=== PATIENT | female | born 1940 | race Two or more races ===

== ENCOUNTER 2016-06-17 08:54 | Emergency (ER) | payer MEDICARE, OTHER ==
[~2016-06-17] VITALS: Ht 152.4 cm; Wt 71.2 kg
[~2016-06-17 08:54] MED LIST: ALPR0.5T PO; ENAL2.5T PO; FURO20TA3 PO; HYDR200T36 PO; NOR5T PO; SULF-35 PO
[2016-06-17 09:05] VITALS: BP 144/65
[2016-06-17] MEDS ORDERED: HYDROcodone-ACET 5/325MG TAB PO ONE (11:30)
[2016-06-17] MEDS ORDERED: KETOROLAC TROMETH 30 MG/ML 1ML VIAL IM ONE (11:30)
== END 2016-06-17 12:12 | disposition home or self-care (01) ==
LOC: EDBD 08:54 → ER 09:00
DX: G89.29 Other chronic pain (principal); M25.511 Pain in right shoulder; M19.011 Primary osteoarthritis, right shoulder; M16.11 Unilateral primary osteoarthritis, right hip; M19.90 Unspecified osteoarthritis, unspecified site; I10 Essential (primary) hypertension; Z87.440 Personal history of urinary (tract) infections; Z90.710 Acquired absence of both cervix and uterus; Z90.89 Acquired absence of other organs; Z88.8 Allergy status to other drugs, medicaments and biological substances
CPT/HCPCS: 73030; 73502; 96372; 99284; J1885

== ENCOUNTER 2016-09-08 10:15 | Emergency (ER) | payer MEDICARE, OTHER ==
[~2016-09-08] VITALS: Ht 154.9 cm; Wt 68.0 kg
[2016-09-08 10:59] LABS: Urine Bilirubin Negative (Negative); Urine Blood TRACE /uL (Negative); Urine Color Yellow (Yellow); Urine Glucose Normal (Normal); Urine Ketone Negative (Negative); Urine Nitrite Negative (Negative); Urine RBC 1 /hpf (0 - 4); Urine Squamous Epithelial Cell FEW /hpf (<5); Urine Urobilinogen Normal (Negative)
[2016-09-08 11:23] LABS: Basophils # (auto) 0 uL; Basophils % (auto) 0.7 % (0.0-2.0); Eosinophils # (auto) 0.1 uL; Eosinophils % (auto) 1.6 % (0.0-7.0); Hemoglobin 14.2 g/dL (12.2-16.2); Lymphocytes # (auto) 1.8 uL; Lymphocytes % (auto) 24.3 % (10.0-50.0); Mean Corpuscular Hemoglobin 28.8 pg (28.0-32.0); Mean Corpuscular Volume 87.3 fL (80.0-100.0); Mean Platelet Volume 8.9 fL (7.4-10.4); Monocytes # (auto) 0.5 uL; Monocytes % (auto) 6.6 % (0.0-12.0); Neutrophils # (auto) 4.8 uL; Neutrophils % (auto) 66.8 % (37.0-80.0); Platelet Count (auto) 241 10^3/uL (140-450); Red Cell Distribution Width 15.1 % (11.6-16.0); White Blood Cell 7.2 10^3/uL (4.4-10.8)
[2016-09-08 11:27] LABS: Albumin 3.7 g/dL (3.4-5.0); BUN/Creatinine Ratio 14.7; Bilirubin, Total 0.3 mg/dL (0.2-1.0); Calcium 9.5 mg/dL (8.5-10.1); Potassium 3.8 mmol/L (3.5-5.1); Total Protein 8.4 g/dL (6.4-8.2)
[2016-09-08] MEDS ORDERED: METOCLOPRAMIDE HCL 5MG/ml INJ 2ml VIAL IV ONE (13:30)
[2016-09-08] MEDS ORDERED: KETOROLAC TROMETH 30 MG/ML 1ML VIAL IV ONE (13:30)
[2016-09-08 16:00] VITALS: BP 137/62
== END 2016-09-08 18:41 | disposition home or self-care (01) ==
LOC: EDBD 10:15 → ER 10:18
DX: G43.819 Other migraine, intractable, without status migrainosus (principal); B89 Unspecified parasitic disease; H75.01 Mastoiditis in infectious and parasitic diseases classified elsewhere, right ear; M06.9 Rheumatoid arthritis, unspecified; F41.1 Generalized anxiety disorder; R42 Dizziness and giddiness; I10 Essential (primary) hypertension; Z90.710 Acquired absence of both cervix and uterus; Z90.49 Acquired absence of other specified parts of digestive tract
CPT/HCPCS: 36415; 70450; 71020; 80053; 81001; 84484; 85025; 93005; 96374; 96375; 99285; J1885; J2765

== ENCOUNTER 2016-10-05 09:00 | Inpatient (IN) | payer MEDICARE, OTHER ==
[~2016-10-05] VITALS: Ht 152.4 cm; Wt 74.4 kg
[2016-10-05] MEDS ORDERED: FUROSEMIDE 40 MG/4 ML VIAL IV ONE (10:00)
[2016-10-05 10:25] LABS: Basophils # (auto) 0 uL; Basophils % (auto) 0.6 % (0.0-2.0); Eosinophils # (auto) 0.2 uL; Eosinophils % (auto) 3.6 % (0.0-7.0); Hematocrit 34.4 % (36.0-46.0); Hemoglobin 11.4 g/dL (12.2-16.2); Lymphocytes % (auto) 32.7 % (10.0-50.0); Mean Corpuscular Hemoglobin 29.1 pg (28.0-32.0); Mean Corpuscular Hgb Conc. 33.2 g/dL (32.0-36.0); Mean Corpuscular Volume 87.7 fL (80.0-100.0); Mean Platelet Volume 8.6 fL (7.4-10.4); Monocytes # (auto) 0.7 uL; Monocytes % (auto) 10.9 % (0.0-12.0); Neutrophils # (auto) 3.1 uL; Neutrophils % (auto) 52.2 % (37.0-80.0); Platelet Count (auto) 183 10^3/uL (140-450); Red Cell Distribution Width 14.2 % (11.6-16.0)
[2016-10-05 10:35] LABS: Albumin 3.2 g/dL (3.4-5.0); Anion Gap 7 (5-15); Aspartate Aminotransferase 11 U/L (15-37); BUN/Creatinine Ratio 13.1; Blood Urea Nitrogen 11 mg/dL (7-18); Calcium 8.7 mg/dL (8.5-10.1); Carbon Dioxide 29 mmol/L (21-32); Chloride 107 mmol/L (98-107); GFR African American 85 mL/min; GFR Non-African American 70 mL/min; Glucose 105 mg/dL (74-106); Magnesium 2.2 mg/dL (1.6-2.6); Potassium 3.5 mmol/L (3.5-5.1); Sodium 143 mmol/L (136-145); Total Protein 7.2 g/dL (6.4-8.2)
[2016-10-05 10:39] LABS: Alkaline Phosphatase 85 U/L (45-117); B-Type Natriuretic Peptide 27.7 pg/mL (0-100); Bilirubin, Total 0.5 mg/dL (0.2-1.0); Temperature: 24.8 C (20.0-25.0)
[2016-10-05 11:51] LABS: Urine Bilirubin Negative (Negative); Urine Blood Negative /uL (Negative); Urine Color Yellow (Yellow); Urine Glucose Normal (Normal); Urine Ketone Negative (Negative); Urine Mucus FEW (None Seen); Urine Nitrite Negative (Negative); Urine RBC 1 /hpf (0 - 4); Urine Urobilinogen Normal (Negative); Urine pH 6.5 (5.0-8.0)
[2016-10-05] MEDS ORDERED: cefTRIAXone 1GM/50ML D5W 50 ML IV ONE (13:15)
[2016-10-05] MEDS ORDERED: PROCHLORPERAZINE EDISYLATE 5 MG/ML 2ML VIAL IV PRN (13:15)
[2016-10-05] MEDS ORDERED: ACETAMINOPHEN 500 MG TAB PO PRN (13:15)
[2016-10-05] MEDS ORDERED: MORPHINE SULF INJ 2 MG/ML SYRINGE 1ML IV PRN (13:15)
[2016-10-05] MEDS ORDERED: NITROGLYCERIN 0.4 MG SL TAB SL PRN (13:15)
[2016-10-05] MEDS ORDERED: TEMAZEPAM 15 MG CAP PO PRN (13:15)
[2016-10-05] MEDS ORDERED: LACTULOSE 20Gm/30ML SOLN PO PRN (13:15)
[2016-10-05] MEDS: ENALAPRIL MALEATE 2.5 MG TAB PO ONE ×2 (13:45→14:30)
[2016-10-05] MEDS ORDERED: PANTOPRAZOLE 40 MG TAB PO ONE (13:45)
[2016-10-05] MEDS ORDERED: NITROGLYCERIN 0.2MG/HR TOPICAL PATCH TD ONE (13:45)
[2016-10-05] MEDS ORDERED: CARVEDILOL 3.125 MG TAB PO ONE (13:45)
[2016-10-05] MEDS ORDERED: ASPirin 81 mg TAB PO ONE (13:45)
[2016-10-05] MEDS: SODIUM CHLOR 0.9% PF (SALINE LOCK) 10ML VIAL IV SCH ×2 (14:24→22:04)
[2016-10-05] MEDS: ALPRAZolam 0.5 MG TAB PO PRN (15:13)
[2016-10-05 17:45] VITALS: BP 102/52
[2016-10-05 20:00] VITALS: BP 99/51
[2016-10-05] MEDS: CARVEDILOL 3.125 MG TAB PO SCH (22:00)
[2016-10-05 22:14] VITALS: BP 99/51
[2016-10-06] VITALS (7 sets, daily range): BP systolic 104–153; BP diastolic 47–76
[2016-10-06] MEDS: SODIUM CHLOR 0.9% PF (SALINE LOCK) 10ML VIAL IV SCH ×3 (05:05→21:37)
[2016-10-06] MEDS: HYDROcodone-ACET 5/325MG TAB PO PRN ×2 (05:05→20:44)
[2016-10-06 06:35] LABS: Basophils # (auto) 0 uL; Basophils % (auto) 0.5 % (0.0-2.0); Eosinophils # (auto) 0.2 uL; Eosinophils % (auto) 4.5 % (0.0-7.0); Hematocrit 35.4 % (36.0-46.0); Hemoglobin 11.6 g/dL (12.2-16.2); Lymphocytes # (auto) 1.4 uL; Lymphocytes % (auto) 25.2 % (10.0-50.0); Mean Corpuscular Hgb Conc. 32.7 g/dL (32.0-36.0); Mean Corpuscular Volume 88.6 fL (80.0-100.0); Mean Platelet Volume 8.8 fL (7.4-10.4); Monocytes # (auto) 0.5 uL; Monocytes % (auto) 10.1 % (0.0-12.0); Neutrophils # (auto) 3.2 uL; Neutrophils % (auto) 59.7 % (37.0-80.0); Platelet Count (auto) 177 10^3/uL (140-450); Red Cell Distribution Width 14.8 % (11.6-16.0); White Blood Cell 5.4 10^3/uL (4.4-10.8)
[2016-10-06 06:43] LABS: Albumin 2.8 g/dL (3.4-5.0); Alkaline Phosphatase 81 U/L (45-117); Anion Gap 8 (5-15); Aspartate Aminotransferase 13 U/L (15-37); BUN/Creatinine Ratio 17.9; Bilirubin, Total 0.4 mg/dL (0.2-1.0); Blood Urea Nitrogen 14 mg/dL (7-18); Calcium 8.6 mg/dL (8.5-10.1); Carbon Dioxide 28 mmol/L (21-32); Chloride 110 mmol/L (98-107); Cholesterol 134 mg/dL (< 200); GFR African American 92 mL/min; GFR Non-African American 76 mL/min; Glucose 127 mg/dL (74-106); HDL Cholesterol 43 mg/dL (40-59); LDL Cholesterol 79 mg/dL (< 100); Potassium 3.5 mmol/L (3.5-5.1); Sodium 146 mmol/L (136-145); Total Protein 6.5 g/dL (6.4-8.2); Triglycerides 115 mg/dL (< 150)
[2016-10-06 07:13] LABS: B-Type Natriuretic Peptide 71.85 pg/mL (0-100)
[2016-10-06 07:19] LABS: Temperature: 22.5 C (20.0-25.0)
[2016-10-06] MEDS: ALPRAZolam 0.5 MG TAB PO PRN ×2 (08:28→20:44)
[2016-10-06] MEDS: FUROSEMIDE 40 MG/4 ML VIAL IV SCH (09:07)
[2016-10-06] MEDS: ASPirin 81 mg TAB PO SCH (09:08)
[2016-10-06] MEDS: cefTRIAXone 1GM/50ML D5W 50 ML IV SCH (09:08)
[2016-10-06] MEDS: PANTOPRAZOLE 40 MG TAB PO SCH (09:08)
[2016-10-06] MEDS: ENOXAPARIN SOD 40 MG/0.4 ML SYRINGE SC SCH (09:08)
[2016-10-06] MEDS: NITROGLYCERIN 0.2MG/HR TOPICAL PATCH TD SCH (09:11)
[2016-10-06] MEDS: ENALAPRIL MALEATE 2.5 MG TAB PO SCH (10:00)
[2016-10-06] MEDS ORDERED: ENOXAPARIN SOD 40 MG/0.4 ML SYRINGE SC ONE (10:00)
[2016-10-06] MEDS: MORPHINE SULF INJ 2 MG/ML SYRINGE 1ML IV PRN ×2 (11:25→15:30)
[2016-10-06] MEDS: CARVEDILOL 3.125 MG TAB PO SCH ×2 (11:26→21:39)
[2016-10-07] MEDS: HYDROcodone-ACET 5/325MG TAB PO PRN ×3 (03:57→12:52)
[2016-10-07] MEDS: ALPRAZolam 0.5 MG TAB PO PRN ×2 (04:16→09:16)
[2016-10-07 05:00] VITALS: BP 145/78
[2016-10-07] MEDS: SODIUM CHLOR 0.9% PF (SALINE LOCK) 10ML VIAL IV SCH ×2 (05:15→14:00)
[2016-10-07 05:47] LABS: Basophils # (auto) 0 uL; Basophils % (auto) 0.4 % (0.0-2.0); Eosinophils # (auto) 0.2 uL; Eosinophils % (auto) 4.3 % (0.0-7.0); Hematocrit 36.2 % (36.0-46.0); Hemoglobin 11.8 g/dL (12.2-16.2); Lymphocytes # (auto) 1.1 uL; Lymphocytes % (auto) 22.2 % (10.0-50.0); Mean Corpuscular Hemoglobin 28.9 pg (28.0-32.0); Mean Corpuscular Hgb Conc. 32.6 g/dL (32.0-36.0); Mean Corpuscular Volume 88.5 fL (80.0-100.0); Mean Platelet Volume 8.5 fL (7.4-10.4); Monocytes # (auto) 0.5 uL; Monocytes % (auto) 10.3 % (0.0-12.0); Neutrophils # (auto) 3.1 uL; Neutrophils % (auto) 62.8 % (37.0-80.0); Platelet Count (auto) 184 10^3/uL (140-450); Red Cell Distribution Width 14.1 % (11.6-16.0)
[2016-10-07 06:06] LABS: Calcium 8.9 mg/dL (8.5-10.1); Potassium 3.5 mmol/L (3.5-5.1)
[2016-10-07 06:08] LABS: BUN/Creatinine Ratio 21.6
[2016-10-07] MEDS: cefTRIAXone 1GM/50ML D5W 50 ML IV SCH (08:36)
[2016-10-07] MEDS: FUROSEMIDE 40 MG/4 ML VIAL IV SCH (08:37)
[2016-10-07] MEDS: ASPirin 81 mg TAB PO SCH (08:37)
[2016-10-07] MEDS: ENALAPRIL MALEATE 2.5 MG TAB PO SCH (08:39)
[2016-10-07] MEDS: PANTOPRAZOLE 40 MG TAB PO SCH (08:39)
[2016-10-07] MEDS: MORPHINE SULF INJ 2 MG/ML SYRINGE 1ML IV PRN (08:40)
[2016-10-07] MEDS: CARVEDILOL 3.125 MG TAB PO SCH (08:40)
[2016-10-07] MEDS: ENOXAPARIN SOD 40 MG/0.4 ML SYRINGE SC SCH (08:40)
[2016-10-07] MEDS: NITROGLYCERIN 0.2MG/HR TOPICAL PATCH TD SCH (08:41)
[2016-10-07 09:11] VITALS: BP 126/67
[2016-10-07 12:03] VITALS: BP 111/45
[2016-10-07 13:09] VITALS: BP 111/45
== END 2016-10-07 14:50 | disposition home or self-care (01) | DRG 292 ==
LOC: ER 09:00 → TELE 09:01 → TELE-E-ADS 17:27 → TELE-WESTW 17:51
PROVIDERS: ADMIT Internal Medicine; ATTEND Family Medicine
DX: I50.43 Acute on chronic combined systolic (congestive) and diastolic (congestive) heart failure (principal); N39.0 Urinary tract infection, site not specified; I11.0 Hypertensive heart disease with heart failure; F41.9 Anxiety disorder, unspecified; F32.9 Major depressive disorder, single episode, unspecified; M79.7 Fibromyalgia; M19.90 Unspecified osteoarthritis, unspecified site; D64.9 Anemia, unspecified; N20.0 Calculus of kidney; Z80.0 Family history of malignant neoplasm of digestive organs; Z80.1 Family history of malignant neoplasm of trachea, bronchus and lung; Z80.3 Family history of malignant neoplasm of breast; Z80.41 Family history of malignant neoplasm of ovary; Z80.8 Family history of malignant neoplasm of other organs or systems; Z81.8 Family history of other mental and behavioral disorders; Z82.0 Family history of epilepsy and other diseases of the nervous system; Z82.3 Family history of stroke; Z82.49 Family history of ischemic heart disease and other diseases of the circulatory system; Z82.5 Family history of asthma and other chronic lower respiratory diseases; Z82.62 Family history of osteoporosis; Z83.3 Family history of diabetes mellitus; Z87.442 Personal history of urinary calculi; Z90.710 Acquired absence of both cervix and uterus; Z90.89 Acquired absence of other organs; Z88.8 Allergy status to other drugs, medicaments and biological substances
CPT/HCPCS: 36415; 71010; 76775; 80048; 80053; 80061; 81001; 82550; 83735; 83880; 84443; 84484; 85025; 87081; 87086; 93005; 93306; 93970; 94761; 96374; 96375; J0696

== ENCOUNTER → 2016-10-31 | Outpatient (CLI) | payer MEDICARE, OTHER ==
[~2016-10-31] MED LIST changes: -HYDR200T36 PO
[2016-10-31 09:08] LABS: Urine Bilirubin Negative (Negative); Urine Color Yellow (Yellow); Urine Glucose Normal (Normal); Urine Ketone Negative (Negative); Urine Mucus FEW (None Seen); Urine Nitrite Negative (Negative); Urine RBC 14 /hpf (0 - 4); Urine Squamous Epithelial Cell FEW /hpf (<5); Urine Urobilinogen Normal (Negative); Urine pH 6.5 (5.0-8.0)
[2016-10-31 09:09] LABS: Urine Blood 1+ /uL (Negative)
== END | disposition home or self-care (01) ==
LOC: LAB 06:34
PROVIDERS: ATTEND Internal Medicine
DX: I10 Essential (primary) hypertension (principal); S46.119D Strain of muscle, fascia and tendon of long head of biceps, unspecified arm, subsequent encounter; H70.11 Chronic mastoiditis, right ear
CPT/HCPCS: 80307; 81001; 82607; 82728; 83540; 83550

== ENCOUNTER → 2016-11-07 | Outpatient (CLI) | payer MEDICARE, OTHER ==
[~2016-11-07] MED LIST changes: +HYDR-4663 PO; -NOR5T PO
== END | disposition home or self-care (01) ==
LOC: XY 10:08
PROVIDERS: ATTEND Internal Medicine
DX: R93.0 Abnormal findings on diagnostic imaging of skull and head, not elsewhere classified (principal)
CPT/HCPCS: 78306; A9503

== ENCOUNTER 2016-11-21 13:19 | Emergency (ER) | payer MEDICARE, OTHER ==
[~2016-11-21] VITALS: Ht 152.4 cm; Wt 67.6 kg
[2016-11-21 14:49] LABS: Basophils # (auto) 0 uL; Basophils % (auto) 0.7 % (0.0-2.0); CONDITION Y; Eosinophils # (auto) 0.2 uL; Eosinophils % (auto) 3.4 % (0.0-7.0); Hematocrit 38.8 % (36.0-46.0); Lymphocytes # (auto) 1.8 uL; Mean Corpuscular Hemoglobin 29.5 pg (28.0-32.0); Mean Corpuscular Hgb Conc. 33.5 g/dL (32.0-36.0); Mean Corpuscular Volume 88.2 fL (80.0-100.0); Mean Platelet Volume 8.8 fL (7.4-10.4); Monocytes # (auto) 0.6 uL; Monocytes % (auto) 9.4 % (0.0-12.0); Neutrophils # (auto) 3.4 uL; Neutrophils % (auto) 56.5 % (37.0-80.0); Platelet Count (auto) 207 10^3/uL (140-450); Red Cell Distribution Width 13.4 % (11.6-16.0)
[2016-11-21 15:14] LABS: Albumin 3.4 g/dL (3.4-5.0); BUN/Creatinine Ratio 21.7; Bilirubin, Total 0.4 mg/dL (0.2-1.0); Calcium 9.1 mg/dL (8.5-10.1); Potassium 3.8 mmol/L (3.5-5.1); Total Protein 7.6 g/dL (6.4-8.2)
[2016-11-21 15:18] LABS: B-Type Natriuretic Peptide 49.1 pg/mL (0-100)
[2016-11-21 15:25] LABS: Temperature: 22.7 C (20.0-25.0)
[2016-11-21] MEDS ORDERED: FUROSEMIDE 20 MG/2 ML VIAL IV ONE (21:45)
[2016-11-21 22:36] VITALS: BP 113/64
== END 2016-11-21 22:38 | disposition home or self-care (01) ==
LOC: ER 13:19
DX: R60.0 Localized edema (principal); Z88.8 Allergy status to other drugs, medicaments and biological substances; M19.90 Unspecified osteoarthritis, unspecified site; I13.0 Hypertensive heart and chronic kidney disease with heart failure and stage 1 through stage 4 chronic kidney disease, or unspecified chronic kidney disease; I50.9 Heart failure, unspecified; N18.9 Chronic kidney disease, unspecified; Z90.710 Acquired absence of both cervix and uterus; Z90.49 Acquired absence of other specified parts of digestive tract
CPT/HCPCS: 36415; 71010; 80053; 83880; 85025; 93005; 94761; 96374; 99285; J1940; 51702

== ENCOUNTER 2016-11-29 13:32 | Emergency (ER) | payer MEDICARE, OTHER ==
[~2016-11-29] VITALS: Ht 152.4 cm; Wt 67.6 kg
[2016-11-29 14:06] LABS: Basophils # (auto) 0 uL; Basophils % (auto) 0.6 % (0.0-2.0); CONDITION Y; Eosinophils # (auto) 0.2 uL; Eosinophils % (auto) 4.4 % (0.0-7.0); Hematocrit 38.6 % (36.0-46.0); Hemoglobin 12.9 g/dL (12.2-16.2); Lymphocytes # (auto) 1.5 uL; Lymphocytes % (auto) 29.6 % (10.0-50.0); Mean Corpuscular Hemoglobin 29.5 pg (28.0-32.0); Mean Corpuscular Hgb Conc. 33.5 g/dL (32.0-36.0); Mean Corpuscular Volume 88.2 fL (80.0-100.0); Mean Platelet Volume 8.4 fL (7.4-10.4); Monocytes # (auto) 0.6 uL; Neutrophils # (auto) 2.8 uL; Neutrophils % (auto) 54.4 % (37.0-80.0); Platelet Count (auto) 199 10^3/uL (140-450); Red Cell Distribution Width 13.3 % (11.6-16.0); White Blood Cell 5.2 10^3/uL (4.4-10.8)
[2016-11-29 14:38] LABS: Albumin 3.4 g/dL (3.4-5.0); Alkaline Phosphatase 99 U/L (45-117); Anion Gap 7 (5-15); Aspartate Aminotransferase 12 U/L (15-37); BUN/Creatinine Ratio 19.7; Bilirubin, Total 0.4 mg/dL (0.2-1.0); Blood Urea Nitrogen 15 mg/dL (7-18); Calcium 8.7 mg/dL (8.5-10.1); Carbon Dioxide 30 mmol/L (21-32); Chloride 103 mmol/L (98-107); GFR African American 95 mL/min; GFR Non-African American 78 mL/min; Glucose 85 mg/dL (74-106); Potassium 3.9 mmol/L (3.5-5.1); Sodium 140 mmol/L (136-145); Total Protein 7.6 g/dL (6.4-8.2)
[2016-11-29 14:39] LABS: B-Type Natriuretic Peptide 47.33 pg/mL (0-100)
[2016-11-29 14:57] LABS: Temperature: 23.5 C (20.0-25.0)
[2016-11-29 20:27] LABS: Urine RBC None Seen /hpf (0 - 4)
[2016-11-29 20:49] LABS: Urine Bilirubin Negative (Negative); Urine Color Yellow (Yellow); Urine Glucose Normal (Normal); Urine Ketone Negative (Negative); Urine Squamous Epithelial Cell FEW /hpf (<5); Urine Urobilinogen Normal (Negative); Urine WBC Clumps PRESENT /hpf (None Seen)
[2016-11-29 20:52] LABS: Urine Blood 1+ /uL (Negative); Urine Nitrite POSITIVE (Negative)
[2016-11-29 20:53] VITALS: BP 109/52
== END 2016-11-29 22:00 | disposition home or self-care (01) ==
LOC: ER 13:32
DX: R60.0 Localized edema (principal); N39.0 Urinary tract infection, site not specified; F41.9 Anxiety disorder, unspecified; I13.10 Hypertensive heart and chronic kidney disease without heart failure, with stage 1 through stage 4 chronic kidney disease, or unspecified chronic kidney disease; N18.9 Chronic kidney disease, unspecified; F03.90 Unspecified dementia, unspecified severity, without behavioral disturbance, psychotic disturbance, mood disturbance, and anxiety; M19.90 Unspecified osteoarthritis, unspecified site; F32.9 Major depressive disorder, single episode, unspecified; Z88.8 Allergy status to other drugs, medicaments and biological substances
CPT/HCPCS: 36415; 71010; 80053; 81001; 83880; 84484; 85025; 93005

== ENCOUNTER → 2017-01-03 | Outpatient (CLI) | payer MEDICARE, OTHER ==
[~2017-01-03] MED LIST changes: +CYANOCOBALAMIN (B-12) 1000 MCG/1 ML VIAL ONE; +CYANOCOBALAMIN (B-12) 1000 MCG/1 ML VIAL SUBCUT ONE; +LEVOFLOXACIN 500 MG TAB ONE; +LEVOFLOXACIN 500 MG TAB PO ONE; +LEVOFLOXACIN 500MG 100 ML IV ONE; +SODIUM CHLORIDE 0.9% 500 ML IV SCH; +cefTRIAXone 1GM/50ML D5W 50 ML IV ONE; +cefTRIAXone SOD 1,000 MG VL ONE
[2017-01-03 17:12] VITALS: BP 145/52
== END | disposition home or self-care (01) ==
LOC: CHF HDHVI 14:04
PROVIDERS: ATTEND Internal Medicine Cardiovascular Disease
DX: D64.9 Anemia, unspecified (principal); E86.0 Dehydration
CPT/HCPCS: 82962; 96365; 96366; 96372; G0463; J0696; J1956; J3420; 96361; 96367

== ENCOUNTER 2017-04-30 10:30 | Emergency (ER) | payer MEDICARE, OTHER ==
[~2017-04-30] VITALS: Ht 152.4 cm; Wt 68.9 kg
[~2017-04-30 10:30] MED LIST changes: -CYANOCOBALAMIN (B-12) 1000 MCG/1 ML VIAL ONE; -CYANOCOBALAMIN (B-12) 1000 MCG/1 ML VIAL SUBCUT ONE; -HYDR-4663 PO; +HYDR-4683 PO; -LEVOFLOXACIN 500 MG TAB ONE; -LEVOFLOXACIN 500 MG TAB PO ONE; -LEVOFLOXACIN 500MG 100 ML IV ONE; -SODIUM CHLORIDE 0.9% 500 ML IV SCH; -SULF-35 PO; -cefTRIAXone 1GM/50ML D5W 50 ML IV ONE; -cefTRIAXone SOD 1,000 MG VL ONE
[2017-04-30 12:30] VITALS: BP 153/70
[2017-04-30 13:05] LABS: Basophils # (auto) 0.1 uL; Basophils % (auto) 1.4 % (0.0-2.0); Eosinophils # (auto) 0.2 uL; Eosinophils % (auto) 2.1 % (0.0-7.0); Hematocrit 42.5 % (36.0-46.0); Hemoglobin 13.7 g/dL (12.2-16.2); Lymphocytes # (auto) 1.9 uL; Lymphocytes % (auto) 21.1 % (10.0-50.0); Mean Corpuscular Hgb Conc. 32.3 g/dL (32.0-36.0); Mean Corpuscular Volume 86.7 fL (80.0-100.0); Mean Platelet Volume 8.4 fL (6.9-10.8); Monocytes # (auto) 0.6 uL; Monocytes % (auto) 6.4 % (0.0-12.0); Neutrophils # (auto) 6.2 uL; Nucleated Red Blood Cells % 0.1 %; Platelet Count (auto) 189 10^3/uL (140-450); Red Cell Distribution Width 14.6 % (11.8-14.3)
[2017-04-30 13:25] LABS: Albumin 3.6 g/dL (3.4-5.0); Alkaline Phosphatase 105 U/L (45-117); Anion Gap 7 (5-15); Aspartate Aminotransferase 15 U/L (15-37); BUN/Creatinine Ratio 17.9; Bilirubin, Total 0.3 mg/dL (0.2-1.0); Blood Urea Nitrogen 14 mg/dL (7-18); Carbon Dioxide 29 mmol/L (21-32); Chloride 106 mmol/L (98-107); GFR African American 92 mL/min; GFR Non-African American 76 mL/min; Glucose 87 mg/dL (74-106); Potassium 3.8 mmol/L (3.5-5.1); Sodium 142 mmol/L (136-145); Total Protein 8.4 g/dL (6.4-8.2)
[2017-04-30] MEDS ORDERED: HYDROcodone-ACET 5/325MG TAB PO ONE (14:15)
[2017-04-30 14:25] LABS: B-Type Natriuretic Peptide 59.75 pg/mL (0-100)
[2017-04-30 14:26] LABS: Temperature: 23.3 C (20.0-25.0)
== END 2017-04-30 15:51 | disposition home or self-care (01) ==
LOC: ER 10:30
DX: M67.912 Unspecified disorder of synovium and tendon, left shoulder (principal); N39.0 Urinary tract infection, site not specified; I13.0 Hypertensive heart and chronic kidney disease with heart failure and stage 1 through stage 4 chronic kidney disease, or unspecified chronic kidney disease; I50.9 Heart failure, unspecified; M19.90 Unspecified osteoarthritis, unspecified site; N18.9 Chronic kidney disease, unspecified; Z88.8 Allergy status to other drugs, medicaments and biological substances; Z90.49 Acquired absence of other specified parts of digestive tract; Z90.710 Acquired absence of both cervix and uterus
CPT/HCPCS: 36415; 71010; 71101; 73030; 73060; 73502; 73562; 80053; 83880; 84484; 85025; 93005

== ENCOUNTER → 2017-06-07 | Outpatient (CLI) | payer MEDICARE, OTHER ==
[~2017-06-07] VITALS: Ht 30.5 cm; Wt 0.5 kg
[~2017-06-07] MED LIST changes: +CYANOCOBALAMIN (B-12) 1000 MCG/1 ML VIAL IM ONE; +CYANOCOBALAMIN (B-12) 1000 MCG/1 ML VIAL ONE; +NITR-48 PO; +POTA10TA51 PO
[2017-06-07 13:15] VITALS: BP 192/64
[2017-06-07 13:55] VITALS: BP 156/70
== END | disposition home or self-care (01) ==
LOC: CHF HDHVI 13:40
PROVIDERS: ATTEND Internal Medicine Cardiovascular Disease
DX: I10 Essential (primary) hypertension (principal)
CPT/HCPCS: 96372; G0463; J3420

== ENCOUNTER 2017-07-05 10:45 | Inpatient (IN) | payer MEDICARE, OTHER ==
[~2017-07-05] VITALS: Ht 162.6 cm; Wt 72.7 kg
[~2017-07-05 10:45] MED LIST changes: -CYANOCOBALAMIN (B-12) 1000 MCG/1 ML VIAL IM ONE; -CYANOCOBALAMIN (B-12) 1000 MCG/1 ML VIAL ONE; -NITR-48 PO; -POTA10TA51 PO
[2017-07-05 11:58] LABS: Basophils # (auto) 0.1 uL; Basophils % (auto) 1.4 % (0.0-2.0); Eosinophils # (auto) 0.1 uL; Eosinophils % (auto) 1.8 % (0.0-7.0); Hematocrit 43.1 % (36.0-46.0); Hemoglobin 14.3 g/dL (12.2-16.2); Lymphocytes # (auto) 1.3 uL; Lymphocytes % (auto) 16.2 % (10.0-50.0); Mean Corpuscular Hemoglobin 28.4 pg (28.0-32.0); Mean Corpuscular Hgb Conc. 33.2 g/dL (32.0-36.0); Mean Corpuscular Volume 85.6 fL (80.0-100.0); Monocytes # (auto) 0.5 uL; Monocytes % (auto) 5.9 % (0.0-12.0); Neutrophils # (auto) 5.8 uL; Neutrophils % (auto) 74.7 % (37.0-80.0); Platelet Count (auto) 188 10^3/uL (140-450); Red Blood Cells 5.03 10^6/uL (4.0-5.20); Red Cell Distribution Width 13.9 % (11.8-14.3); White Blood Cell 7.7 10^3/uL (4.4-10.8)
[2017-07-05 12:11] LABS: Partial Thromboplastin Time 26.8 sec (22.64-33.71); Prothrombin Time 10.9 sec (9.37-12.3)
[2017-07-05 12:30] LABS: Alanine Aminotransferase 30 U/L (13-56); Albumin 3.7 g/dL (3.4-5.0); Anion Gap 9 (5-15); Aspartate Aminotransferase 20 U/L (15-37); BUN/Creatinine Ratio 23.4; Blood Urea Nitrogen 15 mg/dL (7-18); Calcium 10.1 mg/dL (8.5-10.1); Carbon Dioxide 26 mmol/L (21-32); Chloride 107 mmol/L (98-107); GFR African American 115 mL/min; GFR Non-African American 95 mL/min; Glucose 103 mg/dL (74-106); Potassium 3.7 mmol/L (3.5-5.1); Sodium 142 mmol/L (136-145)
[2017-07-05 12:34] LABS: Alkaline Phosphatase 108 U/L (45-117); Bilirubin, Total 0.5 mg/dL (0.2-1.0); Total Protein 8.7 g/dL (6.4-8.2)
[2017-07-05 14:37] LABS: Urine Bacteria NONE SEEN /hpf (None Seen); Urine Blood 1+ /uL (Negative); Urine Mucus FEW (None Seen); Urine Specific Gravity 1.012 (1.001-1.035); Urine WBC 8 /hpf (0 - 5)
[2017-07-05] MEDS ORDERED: cefTRIAXone W LIDOCAINE 1 GM IM IM ONE (14:45)
[2017-07-05] MEDS ORDERED: cefTRIAXone 1GM/10ml IVPUSH 10 ML IV ONE ×2 (15:30→15:45)
[2017-07-05] MEDS ORDERED: NALBUPHINE HCL 10 MG/1ml INJECTION IV ONE (15:30)
[2017-07-05] MEDS ORDERED: TEMAZEPAM 15 MG CAP PO PRN (15:45)
[2017-07-05] MEDS ORDERED: NITROGLYCERIN 0.4 MG SL TAB SL PRN (15:45)
[2017-07-05] MEDS ORDERED: MORPHINE SULFATE 4 MG/ML SYR/VIAL IV PRN (15:45)
[2017-07-05] MEDS ORDERED: ACETAMINOPHEN 500 MG TAB PO PRN (15:45)
[2017-07-05] MEDS ORDERED: LORazepam 0.5 MG TAB PO PRN (15:45)
[2017-07-05] MEDS: SODIUM CHLORIDE 0.9% 1,000 ML IV SCH (16:29)
[2017-07-05] MEDS ORDERED: ASPirin 81 mg TAB PO ONE (16:30)
[2017-07-05 17:39] LABS: Alcohol, Urine < 3.0 mg/dL (0-5); Amphetamine Screen, Urine NEGATIVE (NEGATIVE); Barbiturate Scree,Urine NEGATIVE (NEGATIVE); Cannabinoid Screen, Urine NEGATIVE (NEGATIVE); Cocaine Screen, Urine NEGATIVE (NEGATIVE); Opiate Scree,Urine NEGATIVE (NEGATIVE); Phencyclidine Screen, Urine NEGATIVE (NEGATIVE)
[2017-07-05 17:51] LABS: Benzodiazephine Screen, Urine POSITIVE (NEGATIVE)
[2017-07-05] MEDS: ALPRAZolam 0.5 MG TAB PO PRN (18:59)
[2017-07-05] MEDS ORDERED: LORazepam 2MG/ML-1ML VIAL IV PRN (19:15)
[2017-07-05] MEDS: HYDROcodone-ACET 5/325MG TAB PO PRN (19:59)
[2017-07-05] MEDS: FAMOTIDINE 20 MG TAB PO SCH (22:12)
[2017-07-05] MEDS: ATORVASTATIN 20 MG TAB PO SCH (22:12)
[2017-07-05 23:00] VITALS: BP 144/67
[2017-07-06] MEDS: ALPRAZolam 0.5 MG TAB PO PRN ×3 (02:09→22:00)
[2017-07-06] MEDS: HYDROcodone-ACET 5/325MG TAB PO PRN ×3 (02:13→21:45)
[2017-07-06] MEDS: SODIUM CHLORIDE 0.9% 1,000 ML IV SCH ×2 (04:09→16:39)
[2017-07-06] MEDS ORDERED: POTA10TA51 PO (04:58)
[2017-07-06 05:00] VITALS: BP 101/55
[2017-07-06 09:00] VITALS: BP 109/63
[2017-07-06] MEDS ORDERED: cefTRIAXone 1GM/10ml IVPUSH 10 ML IV SCH (09:00)
[2017-07-06 09:34] LABS: Folate (Folic Acid) 13.52 ng/mL (5.38-24)
[2017-07-06] MEDS: ASPirin 81 mg TAB PO SCH (09:36)
[2017-07-06] MEDS: FAMOTIDINE 20 MG TAB PO SCH ×2 (09:36→21:45)
[2017-07-06] MEDS ORDERED: FUROSEMIDE 20 MG TAB PO SCH (10:00)
[2017-07-06] MEDS ORDERED: ENALAPRIL MALEATE 2.5 MG TAB PO SCH (10:00)
[2017-07-06 12:31] VITALS: BP 119/66
[2017-07-06] MEDS: NITROFURANTOIN (MONO) 100 mg CAP PO SCH ×2 (12:39→21:43)
[2017-07-06 16:22] VITALS: BP 157/71
[2017-07-06] MEDS: ATORVASTATIN 20 MG TAB PO SCH (21:44)
[2017-07-06 22:00] VITALS: BP 136/86
[2017-07-07] MEDS: PROMETHAZINE HCL 25 MG/ML 1ML IV PRN ×3 (03:33→12:50)
[2017-07-07] MEDS: MORPHINE SULFATE 4 MG/ML SYR/VIAL IV PRN ×3 (03:34→12:51)
[2017-07-07 05:00] VITALS: BP 116/51
[2017-07-07] MEDS: SODIUM CHLORIDE 0.9% 1,000 ML IV SCH (05:09)
[2017-07-07 08:00] VITALS: BP 157/55
[2017-07-07 08:32] LABS: Basophils # (auto) 0.1 uL; Basophils % (auto) 1.7 % (0.0-2.0); Eosinophils # (auto) 0.3 uL; Hematocrit 40.2 % (36.0-46.0); Hemoglobin 13.3 g/dL (12.2-16.2); Lymphocytes # (auto) 1.8 uL; Lymphocytes % (auto) 33.2 % (10.0-50.0); Mean Corpuscular Hemoglobin 28.4 pg (28.0-32.0); Mean Corpuscular Hgb Conc. 33.2 g/dL (32.0-36.0); Mean Corpuscular Volume 85.7 fL (80.0-100.0); Monocytes # (auto) 0.7 uL; Monocytes % (auto) 12.3 % (0.0-12.0); Neutrophils # (auto) 2.6 uL; Neutrophils % (auto) 47.8 % (37.0-80.0); Nucleated Red Blood Cells % 0.3 %; Platelet Count (auto) 168 10^3/uL (140-450); Red Blood Cells 4.69 10^6/uL (4.0-5.20); Red Cell Distribution Width 13.8 % (11.8-14.3); White Blood Cell 5.5 10^3/uL (4.4-10.8)
[2017-07-07 08:39] LABS: BUN/Creatinine Ratio 24.3; Potassium 3.9 mmol/L (3.5-5.1)
[2017-07-07 08:40] LABS: Calcium 9.8 mg/dL (8.5-10.1)
[2017-07-07 08:59] VITALS: BP 157/55
[2017-07-07] MEDS: ASPirin 81 mg TAB PO SCH (09:48)
[2017-07-07] MEDS: NITROFURANTOIN (MONO) 100 mg CAP PO SCH (09:48)
[2017-07-07] MEDS: FAMOTIDINE 20 MG TAB PO SCH (09:49)
[2017-07-07] MEDS: ALPRAZolam 0.5 MG TAB PO PRN (10:02)
[2017-07-07] MEDS ORDERED: NITR-48 PO (12:34)
[2017-07-07 13:16] VITALS: BP 144/96
[2017-07-07 13:17] VITALS: BP 144/96
[2017-07-07 13:40] VITALS: BP 144/96
== END 2017-07-07 13:40 | disposition home or self-care (01) | DRG 312 ==
LOC: ER 10:45 → EDBD 10:45 → TELE 10:46 → TELE-WESTW 20:25
PROVIDERS: ADMIT Internal Medicine; ATTEND Internal Medicine
DX: R55 Syncope and collapse (principal); I13.0 Hypertensive heart and chronic kidney disease with heart failure and stage 1 through stage 4 chronic kidney disease, or unspecified chronic kidney disease; N39.0 Urinary tract infection, site not specified; I50.9 Heart failure, unspecified; H70.91 Unspecified mastoiditis, right ear; F32.9 Major depressive disorder, single episode, unspecified; F41.9 Anxiety disorder, unspecified; G89.4 Chronic pain syndrome; K12.1 Other forms of stomatitis; K40.90 Unilateral inguinal hernia, without obstruction or gangrene, not specified as recurrent; K57.30 Diverticulosis of large intestine without perforation or abscess without bleeding; M79.7 Fibromyalgia; G47.00 Insomnia, unspecified; M16.0 Bilateral primary osteoarthritis of hip; H53.8 Other visual disturbances; N18.9 Chronic kidney disease, unspecified; Z80.1 Family history of malignant neoplasm of trachea, bronchus and lung; Z80.3 Family history of malignant neoplasm of breast; Z80.41 Family history of malignant neoplasm of ovary; Z80.8 Family history of malignant neoplasm of other organs or systems; Z81.8 Family history of other mental and behavioral disorders; Z82.0 Family history of epilepsy and other diseases of the nervous system; Z82.3 Family history of stroke; Z82.49 Family history of ischemic heart disease and other diseases of the circulatory system; Z82.5 Family history of asthma and other chronic lower respiratory diseases; Z82.62 Family history of osteoporosis; Z83.3 Family history of diabetes mellitus; Z90.710 Acquired absence of both cervix and uterus; Z88.8 Allergy status to other drugs, medicaments and biological substances; Z79.899 Other long term (current) drug therapy; Z90.89 Acquired absence of other organs
CPT/HCPCS: 36415; 70450; 70551; 71045; 73502; 74176; 80048; 80053; 80307; 81001; 82550; 82607; 82746; 83880; 84443; 84484; 85025; 85379; 85610; 85730; 87086; 93005; 93306; 93886; 96374; 96375; J0696

== ENCOUNTER → 2017-08-30 | Outpatient (CLI) | payer MEDICARE, OTHER ==
[~2017-08-30] MED LIST changes: +NITR-48 PO; +POTA10TA51 PO
== END | disposition home or self-care (01) ==
LOC: LAB 11:44
PROVIDERS: ATTEND Family Medicine
DX: N39.0 Urinary tract infection, site not specified (principal); I13.0 Hypertensive heart and chronic kidney disease with heart failure and stage 1 through stage 4 chronic kidney disease, or unspecified chronic kidney disease; I50.9 Heart failure, unspecified; N18.9 Chronic kidney disease, unspecified
CPT/HCPCS: 87086

== ENCOUNTER → 2018-01-02 | Outpatient (CLI) | payer MEDICARE, OTHER ==
[2018-01-02 08:52] LABS: Basophils # (auto) 0.1 uL; Basophils % (auto) 1.5 % (0.0-2.0); Eosinophils # (auto) 0.3 uL; Eosinophils % (auto) 7.9 % (0.0-7.0); Hematocrit 38.1 % (36.0-46.0); Hemoglobin 12.6 g/dL (12.2-16.2); Lymphocytes # (auto) 1.3 uL; Lymphocytes % (auto) 29.1 % (10.0-50.0); Mean Corpuscular Hemoglobin 28.4 pg (28.0-32.0); Mean Corpuscular Hgb Conc. 33.1 g/dL (32.0-36.0); Mean Corpuscular Volume 85.6 fL (80.0-100.0); Monocytes # (auto) 0.5 uL; Monocytes % (auto) 12.4 % (0.0-12.0); Neutrophils # (auto) 2.2 uL; Neutrophils % (auto) 49.1 % (37.0-80.0); Nucleated Red Blood Cells % 0.1 %; Platelet Count (auto) 159 10^3/uL (140-450); Red Blood Cells 4.45 10^6/uL (4.0-5.20); Red Cell Distribution Width 14.5 % (11.8-14.3); White Blood Cell 4.4 10^3/uL (4.4-10.8)
[2018-01-02 09:13] LABS: Free T4 (Free Thyroxine) 0.91 ng/dL (0.89-1.76)
[2018-01-02 09:15] LABS: Free T3 3.51 pg/mL (2.3-4.2)
[2018-01-02 09:18] LABS: Urine Bacteria FEW /hpf (None Seen); Urine Blood 2+ /uL (Negative); Urine Hyaline Cast FEW /lpf (0 - 2); Urine Mucus FEW (None Seen); Urine Specific Gravity 1.014 (1.001-1.035); Urine WBC 13 /hpf (0 - 5); Urine WBC Clumps PRESENT /hpf (None Seen)
[2018-01-02 09:26] LABS: Albumin 3.3 g/dL (3.4-5.0); BUN/Creatinine Ratio 15.3; Bilirubin, Total 0.5 mg/dL (0.2-1.0); CRP High Sensitivity 0.1 mg/dL (< 0.3); Calcium 8.8 mg/dL (8.5-10.1); Potassium 3.9 mmol/L (3.5-5.1); Total Protein 7.6 g/dL (6.4-8.2)
== END | disposition home or self-care (01) ==
LOC: LAB 08:23
PROVIDERS: ATTEND Family Medicine
DX: I13.0 Hypertensive heart and chronic kidney disease with heart failure and stage 1 through stage 4 chronic kidney disease, or unspecified chronic kidney disease (principal); N18.9 Chronic kidney disease, unspecified; I50.9 Heart failure, unspecified; M19.90 Unspecified osteoarthritis, unspecified site; R79.89 Other specified abnormal findings of blood chemistry
CPT/HCPCS: 36415; 80053; 80061; 81001; 83036; 84439; 84443; 84481; 85025; 85652; 86141; 86803

== ENCOUNTER 2018-01-27 09:29 | Inpatient (IN) | payer MEDICARE, OTHER ==
[~2018-01-27] VITALS: Ht 152.4 cm; Wt 78.4 kg
[2018-01-27 11:46] LABS: Basophils # (auto) 0.1 uL; Basophils % (auto) 1.1 % (0.0-2.0); Eosinophils # (auto) 0.3 uL; Hematocrit 39.4 % (36.0-46.0); Hemoglobin 12.9 g/dL (12.2-16.2); Lymphocytes % (auto) 31.1 % (10.0-50.0); Mean Corpuscular Hemoglobin 27.8 pg (28.0-32.0); Mean Corpuscular Hgb Conc. 32.6 g/dL (32.0-36.0); Mean Corpuscular Volume 85.2 fL (80.0-100.0); Monocytes # (auto) 0.9 uL; Monocytes % (auto) 14.4 % (0.0-12.0); Neutrophils # (auto) 3.1 uL; Neutrophils % (auto) 48.4 % (37.0-80.0); Nucleated Red Blood Cells % 0.1 %; Platelet Count (auto) 175 10^3/uL (140-450); Red Blood Cells 4.63 10^6/uL (4.0-5.20); Red Cell Distribution Width 13.9 % (11.8-14.3); White Blood Cell 6.5 10^3/uL (4.4-10.8)
[2018-01-27 11:51] LABS: Urine Bacteria FEW /hpf (None Seen); Urine Blood 1+ /uL (Negative); Urine Hyaline Cast MANY /lpf (0 - 2); Urine WBC 7 /hpf (0 - 5)
[2018-01-27 12:01] LABS: Alanine Aminotransferase 33 U/L (13-56); Albumin 3.5 g/dL (3.4-5.0); Alkaline Phosphatase 107 U/L (45-117); Anion Gap 7 (5-15); Aspartate Aminotransferase 22 U/L (15-37); BUN/Creatinine Ratio 21.9; Bilirubin, Total 0.5 mg/dL (0.2-1.0); Blood Urea Nitrogen 25 mg/dL (7-18); Calcium 8.7 mg/dL (8.5-10.1); Carbon Dioxide 28 mmol/L (21-32); Chloride 105 mmol/L (98-107); GFR African American 59 mL/min; GFR Non-African American 49 mL/min; Glucose 101 mg/dL (74-106); Potassium 4.4 mmol/L (3.5-5.1); Sodium 140 mmol/L (136-145)
[2018-01-27] MEDS ORDERED: cefTRIAXone 1GM/10ml IVPUSH 10 ML IV ONE (14:00)
[2018-01-27 15:04] LABS: INR 0.97 (0.9-1.15); Partial Thromboplastin Time 23.8 sec (23.78-33.04); Prothrombin Time 10.4 sec (9.27-12.13)
[2018-01-27 15:09] LABS: Magnesium 2.6 mg/dL (1.6-2.6)
[2018-01-27] MEDS ORDERED: ASPirin-EC 81 mg tab PO ONE (15:45)
[2018-01-27] MEDS ORDERED: PROMETHAZINE HCL 25 MG/ML 1ML IV PRN (16:30)
[2018-01-27] MEDS ORDERED: ACETAMINOPHEN 500 MG TAB PO PRN (16:30)
[2018-01-27] MEDS ORDERED: LACTULOSE 20Gm/30ML SOLN PO PRN (16:30)
[2018-01-27] MEDS ORDERED: MORPHINE SULF INJ 2 MG/ML SYRINGE 1ML IV PRN ×2 (16:30→17:15)
[2018-01-27] MEDS ORDERED: TEMAZEPAM 15 MG CAP PO PRN (16:30)
[2018-01-27] MEDS ORDERED: NITROGLYCERIN 0.4 MG SL TAB SL PRN (17:15)
[2018-01-27] MEDS: HYDROcodone-ACET 5/325MG TAB PO PRN (19:52)
[2018-01-27] MEDS: LORazepam 0.5 MG TAB PO PRN (19:52)
[2018-01-27 21:40] VITALS: BP 135/58
[2018-01-27 22:22] VITALS: BP 135/58
[2018-01-28] MEDS: SODIUM CHLOR 0.9% PF (SALINE LOCK) 10ML VIAL/SYR IV SCH ×4 (00:14→21:51)
[2018-01-28] MEDS: ATORVASTATIN 20 MG TAB PO SCH ×3 (00:16→21:51)
[2018-01-28] MEDS: METOPROLOL TARTRATE 25 MG TAB PO SCH ×4 (00:17→21:51)
[2018-01-28 04:53] VITALS: BP 112/60
[2018-01-28] MEDS: HYDROcodone-ACET 5/325MG TAB PO PRN ×3 (05:58→21:52)
[2018-01-28 08:13] LABS: Cholesterol 151 mg/dL (< 200); HDL Cholesterol 31 mg/dL (40-59); LDL Cholesterol 105 mg/dL (< 100); Triglycerides 168 mg/dL (< 150)
[2018-01-28] MEDS: cefTRIAXone 1GM/10ml IVPUSH 10 ML IV SCH (08:42)
[2018-01-28] MEDS: LORazepam 0.5 MG TAB PO PRN (08:42)
[2018-01-28 09:00] VITALS: BP 114/45
[2018-01-28] MEDS: PANTOPRAZOLE 40 MG TAB PO SCH (10:00)
[2018-01-28] MEDS ORDERED: NITROGLYCERIN 0.2MG/HR TOPICAL PATCH TD SCH (10:00)
[2018-01-28] MEDS: ASPirin 81 mg TAB PO SCH (10:20)
[2018-01-28] MEDS: ENOXAPARIN SOD 40 MG/0.4 ML SYRINGE SC SCH (10:21)
[2018-01-28 13:00] VITALS: BP 125/50
[2018-01-28] MEDS: ALPRAZolam 0.5 MG TAB PO PRN ×2 (13:03→21:52)
[2018-01-28] MEDS ORDERED: FUROSEMIDE 20 MG TAB PO ONE (13:45)
[2018-01-28 17:00] VITALS: BP 107/56
[2018-01-28 20:05] VITALS: BP 129/61
[2018-01-28 22:26] VITALS: BP 129/61
[2018-01-29] VITALS (7 sets, daily range): BP systolic 109–158; BP diastolic 48–83
[2018-01-29] MEDS: SODIUM CHLOR 0.9% PF (SALINE LOCK) 10ML VIAL/SYR IV SCH ×3 (05:15→22:15)
[2018-01-29 07:50] LABS: Basophils # (auto) 0.1 uL; Basophils % (auto) 1.3 % (0.0-2.0); Eosinophils # (auto) 0.2 uL; Eosinophils % (auto) 5.8 % (0.0-7.0); Hematocrit 37.5 % (36.0-46.0); Hemoglobin 12.7 g/dL (12.2-16.2); Lymphocytes # (auto) 1.4 uL; Lymphocytes % (auto) 34.9 % (10.0-50.0); Mean Corpuscular Hemoglobin 28.9 pg (28.0-32.0); Mean Corpuscular Hgb Conc. 33.8 g/dL (32.0-36.0); Mean Corpuscular Volume 85.4 fL (80.0-100.0); Monocytes # (auto) 0.7 uL; Monocytes % (auto) 17.6 % (0.0-12.0); Neutrophils # (auto) 1.7 uL; Neutrophils % (auto) 40.4 % (37.0-80.0); Nucleated Red Blood Cells % 0.1 %; Platelet Count (auto) 148 10^3/uL (140-450); Red Blood Cells 4.39 10^6/uL (4.0-5.20); Red Cell Distribution Width 13.8 % (11.8-14.3); White Blood Cell 4.1 10^3/uL (4.4-10.8)
[2018-01-29 08:05] LABS: BUN/Creatinine Ratio 20.7; Calcium 8.7 mg/dL (8.5-10.1); Magnesium 2.7 mg/dL (1.6-2.6); Potassium 3.7 mmol/L (3.5-5.1)
[2018-01-29] MEDS: ENOXAPARIN SOD 40 MG/0.4 ML SYRINGE SC SCH (09:10)
[2018-01-29] MEDS: cefTRIAXone 1GM/10ml IVPUSH 10 ML IV SCH (09:11)
[2018-01-29] MEDS: PANTOPRAZOLE 40 MG TAB PO SCH (10:00)
[2018-01-29] MEDS ORDERED: FUROSEMIDE 20 MG TAB PO SCH (10:00)
[2018-01-29] MEDS: ALPRAZolam 0.5 MG TAB PO PRN ×2 (10:39→16:48)
[2018-01-29] MEDS: HYDROcodone-ACET 5/325MG TAB PO PRN ×2 (10:39→18:50)
[2018-01-29] MEDS ORDERED: ADENOSINE 66 MG in GIVE UN-DILUTED 0 ML IV STA (12:29)
[2018-01-29] MEDS: ASPirin 81 mg TAB PO SCH (16:48)
[2018-01-29] MEDS: METOPROLOL TARTRATE 25 MG TAB PO SCH ×2 (16:49→22:15)
[2018-01-29] MEDS: ATORVASTATIN 20 MG TAB PO SCH (22:00)
[2018-01-30] MEDS: HYDROcodone-ACET 5/325MG TAB PO PRN (00:40)
[2018-01-30 05:00] VITALS: BP 124/50
[2018-01-30] MEDS: SODIUM CHLOR 0.9% PF (SALINE LOCK) 10ML VIAL/SYR IV SCH (05:19)
== END 2018-01-30 08:15 | disposition home or self-care (01) | DRG 689 ==
LOC: ER 09:29 → TELE 09:30 → TELE-CENTR 21:32
PROVIDERS: ADMIT Internal Medicine; ATTEND Internal Medicine
DX: N39.0 Urinary tract infection, site not specified (principal); N17.0 Acute kidney failure with tubular necrosis; I13.0 Hypertensive heart and chronic kidney disease with heart failure and stage 1 through stage 4 chronic kidney disease, or unspecified chronic kidney disease; R07.89 Other chest pain; E66.9 Obesity, unspecified; F32.9 Major depressive disorder, single episode, unspecified; F41.9 Anxiety disorder, unspecified; K57.90 Diverticulosis of intestine, part unspecified, without perforation or abscess without bleeding; I50.9 Heart failure, unspecified; I87.2 Venous insufficiency (chronic) (peripheral); M17.0 Bilateral primary osteoarthritis of knee; N18.3 Chronic kidney disease, stage 3 (moderate); Z82.49 Family history of ischemic heart disease and other diseases of the circulatory system; Z90.710 Acquired absence of both cervix and uterus; Z82.61 Family history of arthritis; Z79.899 Other long term (current) drug therapy
CPT/HCPCS: 36415; 71046; 78452; 80048; 80053; 80061; 81001; 82550; 83735; 83880; 84443; 84484; 85025; 85379; 85610; 85730; 86141; 87086; 93005; 93017; 93306; 93970; 96374; 96376; 97163; J0153; J0696

== ENCOUNTER 2018-02-23 14:36 | Observation (INO) | payer MEDICARE ==
[~2018-02-23] VITALS: Ht 152.4 cm; Wt 72.6 kg
[~2018-02-23 14:36] MED LIST changes: -NITR-48 PO; +NITR100C44 PO
[2018-02-23 14:49] VITALS: BP 116/62
[2018-02-23] MEDS ORDERED: ONDANSETRON HCL 4 MG/2 ML VIAL IV ONE (15:45)
[2018-02-23 15:56] LABS: Basophils # (auto) 0.1 uL; Basophils % (auto) 0.9 % (0.0-2.0); Eosinophils # (auto) 0.2 uL; Eosinophils % (auto) 4.2 % (0.0-7.0); Hemoglobin 13.2 g/dL (12.2-16.2); Lymphocytes # (auto) 1.8 uL; Lymphocytes % (auto) 29.6 % (10.0-50.0); Mean Corpuscular Hemoglobin 28.2 pg (28.0-32.0); Mean Corpuscular Hgb Conc. 33.1 g/dL (32.0-36.0); Mean Corpuscular Volume 85.3 fL (80.0-100.0); Monocytes # (auto) 0.7 uL; Monocytes % (auto) 12.1 % (0.0-12.0); Neutrophils # (auto) 3.2 uL; Neutrophils % (auto) 53.2 % (37.0-80.0); Nucleated Red Blood Cells % 0.1 %; Platelet Count (auto) 168 10^3/uL (140-450); Red Blood Cells 4.68 10^6/uL (4.0-5.20); Red Cell Distribution Width 14.3 % (11.8-14.3); White Blood Cell 5.9 10^3/uL (4.4-10.8)
[2018-02-23 16:17] LABS: Partial Thromboplastin Time 27.6 sec (23.78-33.04); Prothrombin Time 10.7 sec (9.27-12.13)
[2018-02-23 16:21] LABS: Albumin 3.4 g/dL (3.4-5.0); BUN/Creatinine Ratio 14.3; Bilirubin, Total 0.3 mg/dL (0.2-1.0); Calcium 8.8 mg/dL (8.5-10.1); Potassium 3.7 mmol/L (3.5-5.1); Total Protein 8.2 g/dL (6.4-8.2)
[2018-02-23 17:36] LABS: Urine Bacteria NONE SEEN /hpf (None Seen); Urine Blood 1+ /uL (Negative); Urine Specific Gravity 1.006 (1.001-1.035); Urine WBC 18 /hpf (0 - 5)
[2018-02-23] MEDS ORDERED: cefTRIAXone 1GM/10ml IVPUSH 10 ML IV ONE (18:00)
[2018-02-23] MEDS ORDERED: PANTOPRAZOLE 40 MG TAB PO ONE (18:00)
== END 2018-02-23 18:41 | disposition home or self-care (01) | DRG 556 ==
LOC: ER 14:36 → OVERFLOW 14:37 → ER 18:41
PROVIDERS: ADMIT Family Medicine; ATTEND Family Medicine
DX: M79.89 Other specified soft tissue disorders (principal); N39.0 Urinary tract infection, site not specified; K29.70 Gastritis, unspecified, without bleeding; I11.0 Hypertensive heart disease with heart failure; I50.9 Heart failure, unspecified; F32.9 Major depressive disorder, single episode, unspecified; F41.9 Anxiety disorder, unspecified; M19.90 Unspecified osteoarthritis, unspecified site
CPT/HCPCS: 36415; 80053; 81001; 83735; 83880; 84484; 85025; 85610; 85730; 93005; 93970; 96374; 96375; 99285; G0378; J0696; J2405

== ENCOUNTER → 2018-02-28 | Outpatient (CLI) | payer MEDICARE ==
[2018-02-28 15:34] LABS: Urine Bacteria NONE SEEN /hpf (None Seen); Urine Blood 2+ /uL (Negative); Urine Specific Gravity 1.012 (1.001-1.035); Urine WBC 2 /hpf (0 - 5)
[2018-02-28 16:15] LABS: Alcohol, Urine < 3.0 mg/dL (0-5); Amphetamine Screen, Urine NEGATIVE (NEGATIVE); Barbiturate Scree,Urine NEGATIVE (NEGATIVE); Benzodiazephine Screen, Urine POSITIVE (NEGATIVE); Cannabinoid Screen, Urine NEGATIVE (NEGATIVE); Cocaine Screen, Urine NEGATIVE (NEGATIVE); Opiate Scree,Urine NEGATIVE (NEGATIVE); Phencyclidine Screen, Urine NEGATIVE (NEGATIVE)
== END | disposition home or self-care (01) ==
LOC: LAB 15:11
PROVIDERS: ATTEND Nurse Practitioner
DX: Z02.83 Encounter for blood-alcohol and blood-drug test (principal); N39.0 Urinary tract infection, site not specified; I50.9 Heart failure, unspecified; F32.9 Major depressive disorder, single episode, unspecified; Z79.899 Other long term (current) drug therapy
CPT/HCPCS: 80307; 81001

== ENCOUNTER 2018-04-10 10:10 | Emergency (ER) | payer MEDICARE ==
[~2018-04-10] VITALS: Ht 152.4 cm; Wt 68.0 kg
[2018-04-10 12:14] LABS: Urine Bacteria NONE SEEN /hpf (None Seen); Urine Blood TRACE /uL (Negative); Urine Specific Gravity 1.012 (1.001-1.035); Urine WBC 215 /hpf (0 - 5); Urine WBC Clumps PRESENT /hpf (None Seen)
[2018-04-10] MEDS ORDERED: SODIUM CHLORIDE 0.9% 1,000 ML IV ONE (12:48)
[2018-04-10] MEDS ORDERED: cefTRIAXone 1GM/50ML D5W 50 ML IV ONE (13:00)
[2018-04-10] MEDS ORDERED: METOCLOPRAMIDE HCL 5MG/ml INJ 2ml VIAL IV ONE (13:00)
[2018-04-10] MEDS ORDERED: KETOROLAC TROMETH 30 MG/ML 1ML VIAL IV ONE (13:00)
[2018-04-10 14:00] LABS: Basophils # (auto) 0.1 uL; Basophils % (auto) 0.8 % (0.0-2.0); Eosinophils # (auto) 0.3 uL; Eosinophils % (auto) 5.2 % (0.0-7.0); Hematocrit 39.2 % (36.0-46.0); Hemoglobin 12.7 g/dL (12.2-16.2); Lymphocytes # (auto) 1.9 uL; Lymphocytes % (auto) 30.1 % (10.0-50.0); Mean Corpuscular Hemoglobin 27.8 pg (28.0-32.0); Mean Corpuscular Hgb Conc. 32.4 g/dL (32.0-36.0); Mean Corpuscular Volume 85.7 fL (80.0-100.0); Monocytes # (auto) 0.7 uL; Monocytes % (auto) 10.4 % (0.0-12.0); Neutrophils # (auto) 3.5 uL; Neutrophils % (auto) 53.5 % (37.0-80.0); Nucleated Red Blood Cells % 0.1 %; Platelet Count (auto) 179 10^3/uL (140-450); Red Blood Cells 4.58 10^6/uL (4.0-5.20); Red Cell Distribution Width 14.6 % (11.8-14.3); White Blood Cell 6.5 10^3/uL (4.4-10.8)
[2018-04-10 14:25] LABS: Calcium 8.5 mg/dL (8.5-10.1); Potassium 3.9 mmol/L (3.5-5.1)
[2018-04-10 14:28] LABS: BUN/Creatinine Ratio 19.5; Magnesium 2.4 mg/dL (1.6-2.6)
[2018-04-10 14:31] LABS: Bilirubin, Total 0.3 mg/dL (0.2-1.0)
[2018-04-10 14:45] VITALS: BP 128/51
== END 2018-04-10 16:08 | disposition home or self-care (01) ==
LOC: ER 10:10
DX: M17.0 Bilateral primary osteoarthritis of knee (principal); M75.01 Adhesive capsulitis of right shoulder; N39.0 Urinary tract infection, site not specified; E44.0 Moderate protein-calorie malnutrition; M62.838 Other muscle spasm; M54.2 Cervicalgia; I11.0 Hypertensive heart disease with heart failure; I50.9 Heart failure, unspecified; Z90.710 Acquired absence of both cervix and uterus; Z68.29 Body mass index [BMI] 29.0-29.9, adult; Z86.69 Personal history of other diseases of the nervous system and sense organs; W19.XXXA Unspecified fall, initial encounter; Y92.098 Other place in other non-institutional residence as the place of occurrence of the external cause; Y93.89 Activity, other specified
CPT/HCPCS: 36415; 70450; 72040; 73560; 80053; 81001; 83735; 84443; 85025; 93005; 96365; 96375; 99285; J0696; J1885; J2765; J7030

== ENCOUNTER 2018-06-10 22:40 | Emergency (ER) | payer MEDICARE, OTHER ==
[~2018-06-10] VITALS: Ht 152.4 cm; Wt 67.1 kg
[2018-06-11] MEDS ORDERED: ONDANSETRON HCL 4 MG/2 ML VIAL IV ONE
[2018-06-11] MEDS ORDERED: MORPHINE SULFATE 10 MG/ML INJ 1ML SDV IV ONE
[2018-06-11 02:30] VITALS: BP 113/45
== END 2018-06-11 03:06 | disposition home or self-care (01) ==
LOC: EDBD 22:40 → ER 23:00
DX: S00.11XA Contusion of right eyelid and periocular area, initial encounter (principal); M19.90 Unspecified osteoarthritis, unspecified site; I11.0 Hypertensive heart disease with heart failure; I50.9 Heart failure, unspecified; Z87.440 Personal history of urinary (tract) infections; Y04.8XXA Assault by other bodily force, initial encounter; Y93.89 Activity, other specified; Y92.59 Other trade areas as the place of occurrence of the external cause; Y99.8 Other external cause status
CPT/HCPCS: 70450; 70486; 71250; 72125; 72192; 96374; 96375

== ENCOUNTER → 2018-08-19 | Outpatient (CLI) | payer MEDICARE, OTHER ==
[2018-08-19 10:30] LABS: Cholesterol 170 mg/dL (< 200); HDL Cholesterol 57 mg/dL (40-59); LDL Cholesterol 99 mg/dL (< 100); Triglycerides 108 mg/dL (< 150)
== END | disposition home or self-care (01) ==
LOC: LAB 09:28
PROVIDERS: ATTEND Internal Medicine
DX: I11.0 Hypertensive heart disease with heart failure (principal); I50.9 Heart failure, unspecified; E11.9 Type 2 diabetes mellitus without complications; E78.5 Hyperlipidemia, unspecified
CPT/HCPCS: 36415; 80061; 82607; 83036; 84443

== ENCOUNTER 2019-04-10 12:31 | Emergency (ER) | payer MEDICARE, OTHER ==
[~2019-04-10] VITALS: Ht 152.4 cm; Wt 73.0 kg
[~2019-04-10 12:31] MED LIST changes: -HYDR-4683 PO; +HYDR-4833 PO
[2019-04-10] MEDS ORDERED: ONDANSETRON ODT 4 MG TAB PO ONE (13:15)
[2019-04-10] MEDS ORDERED: MECLIZINE HCL 25 MG TAB PO ONE (13:15)
[2019-04-10 13:55] LABS: Basophils # (auto) 0.1 uL; Basophils % (auto) 1.1 % (0.0-2.0); Eosinophils # (auto) 0.2 uL; Eosinophils % (auto) 2.3 % (0.0-7.0); Hematocrit 42.1 % (36.0-46.0); Lymphocytes # (auto) 2.1 uL; Lymphocytes % (auto) 25.2 % (10.0-50.0); Mean Corpuscular Hemoglobin 28.3 pg (28.0-32.0); Mean Corpuscular Hgb Conc. 33.2 g/dL (32.0-36.0); Mean Corpuscular Volume 85.3 fL (80.0-100.0); Monocytes # (auto) 0.8 uL; Monocytes % (auto) 10.1 % (0.0-12.0); Neutrophils # (auto) 5.1 uL; Neutrophils % (auto) 61.3 % (37.0-80.0); Nucleated Red Blood Cells % 0.1 %; Platelet Count (auto) 170 10^3/uL (140-450); Red Blood Cells 4.93 10^6/uL (4.0-5.20); Red Cell Distribution Width 14.2 % (11.8-14.3); White Blood Cell 8.3 10^3/uL (4.4-10.8)
[2019-04-10 14:02] LABS: Albumin 3.7 g/dL (3.4-5.0); Anion Gap 8 (5-15); Blood Urea Nitrogen 22 mg/dL (7-18); Calcium 9.1 mg/dL (8.5-10.1); Carbon Dioxide 25 mmol/L (21-32); Chloride 109 mmol/L (98-107); Glucose 101 mg/dL (74-106); INR 1.06 (0.9-1.15); Magnesium 2.5 mg/dL (1.6-2.6); Partial Thromboplastin Time 24.5 sec (23.64-32.05); Potassium 3.6 mmol/L (3.5-5.1); Sodium 142 mmol/L (136-145)
[2019-04-10 14:10] LABS: Alanine Aminotransferase 19 U/L (13-56); Alkaline Phosphatase 107 U/L (45-117); Aspartate Aminotransferase 12 U/L (15-37); BUN/Creatinine Ratio 26.2; Bilirubin, Total 0.4 mg/dL (0.2-1.0); GFR African American 84 mL/min; GFR Non-African American 69 mL/min; Total Protein 8.1 g/dL (6.4-8.2)
[2019-04-10 17:30] VITALS: BP 149/49
== END 2019-04-10 17:43 | disposition home or self-care (01) ==
LOC: EDBD 12:31 → ER 12:38
DX: R42 Dizziness and giddiness (principal); I11.0 Hypertensive heart disease with heart failure; I50.9 Heart failure, unspecified; Z87.440 Personal history of urinary (tract) infections; Z90.710 Acquired absence of both cervix and uterus
CPT/HCPCS: 36415; 71045; 80053; 83735; 83880; 84484; 85025; 85610; 85730; 93005; 94761; 99284; J8597; Q0162

== ENCOUNTER 2019-06-18 12:02 | Emergency (ER) | payer MEDICARE, OTHER ==
[~2019-06-18] VITALS: Ht 152.4 cm; Wt 68.0 kg
[2019-06-18] MEDS ORDERED: IPRATROPIUM BROM 0.5 MG/2.5ML INH SOL NEB ONE (12:45)
[2019-06-18] MEDS ORDERED: ALBUTEROL SULF 2.5 MG/0.5ML(0.5%) NEB SOLN NEB ONE (12:45)
[2019-06-18 13:24] LABS: Basophils # (auto) 0 uL; Basophils % (auto) 0.5 % (0.0-2.0); Eosinophils # (auto) 0.1 uL; Hematocrit 40.7 % (36.0-46.0); Hemoglobin 13.6 g/dL (12.2-16.2); Lymphocytes % (auto) 35.2 % (10.0-50.0); Mean Corpuscular Hemoglobin 28.5 pg (28.0-32.0); Mean Corpuscular Hgb Conc. 33.5 g/dL (32.0-36.0); Monocytes # (auto) 0.6 uL; Monocytes % (auto) 10.8 % (0.0-12.0); Neutrophils % (auto) 51.5 % (37.0-80.0); Nucleated Red Blood Cells % 0.2 %; Platelet Count (auto) 161 10^3/uL (140-450); Red Blood Cells 4.79 10^6/uL (4.0-5.20); Red Cell Distribution Width 14.6 % (11.8-14.3); White Blood Cell 5.7 10^3/uL (4.4-10.8)
[2019-06-18 13:53] LABS: Chloride 109 mmol/L (98-107); Sodium 141 mmol/L (136-145)
[2019-06-18 14:16] LABS: Alanine Aminotransferase 18 U/L (13-56); Albumin 3.5 g/dL (3.4-5.0); Alkaline Phosphatase 80 U/L (45-117); Anion Gap 4 (5-15); Aspartate Aminotransferase 16 U/L (15-37); BUN/Creatinine Ratio 17.6; Bilirubin, Total 0.6 mg/dL (0.2-1.0); Blood Urea Nitrogen 16 mg/dL (7-18); Carbon Dioxide 28 mmol/L (21-32); GFR African American 76 mL/min; GFR Non-African American 63 mL/min; Glucose 88 mg/dL (74-106); Total Protein 8.2 g/dL (6.4-8.2)
[2019-06-18 17:41] VITALS: BP 150/82
== END 2019-06-18 17:45 | disposition home or self-care (01) ==
LOC: ER 12:02
DX: J21.9 Acute bronchiolitis, unspecified (principal); M19.90 Unspecified osteoarthritis, unspecified site; I11.0 Hypertensive heart disease with heart failure; I50.9 Heart failure, unspecified
CPT/HCPCS: 36415; 71045; 80053; 84484; 85025; 93005; 94640; 99284; J7611; J7644

== ENCOUNTER 2019-08-17 08:09 | Emergency (ER) | payer MEDICARE, OTHER ==
[~2019-08-17] VITALS: Ht 152.4 cm; Wt 71.7 kg
[2019-08-17 09:43] LABS: Basophils # (auto) 0 10 ^3/uL (0-0.2); Basophils % (auto) 0.8 % (0.0-2.0); Eosinophils # (auto) 0.2 10 ^3/uL (0-0.8); Eosinophils % (auto) 3.2 % (0.0-7.0); Hematocrit 38.2 % (36.0-46.0); Hemoglobin 12.5 g/dL (12.2-16.2); Lymphocytes # (auto) 1.5 10 ^3/uL (0.4-5.4); Lymphocytes % (auto) 28.4 % (10.0-50.0); Mean Corpuscular Hemoglobin 28.1 pg (28.0-32.0); Mean Corpuscular Hgb Conc. 32.7 g/dL (32.0-36.0); Monocytes # (auto) 0.5 10 ^3/uL (0-1.3); Monocytes % (auto) 9.5 % (0.0-12.0); Neutrophils # (auto) 3.1 10 ^3/uL (1.6-8.6); Neutrophils % (auto) 58.1 % (37.0-80.0); Nucleated Red Blood Cells % 0.1 %; Platelet Count (auto) 162 10^3/uL (140-450); Red Blood Cells 4.45 10^6/uL (4.0-5.20); Red Cell Distribution Width 14.8 % (11.8-14.3); White Blood Cell 5.3 10^3/uL (4.4-10.8)
[2019-08-17 09:50] LABS: Alanine Aminotransferase 17 U/L (13-56); Albumin 2.9 g/dL (3.4-5.0); Anion Gap 5 (5-15); Aspartate Aminotransferase 11 U/L (15-37); BUN/Creatinine Ratio 22.4; Blood Urea Nitrogen 15 mg/dL (7-18); Calcium 9.2 mg/dL (8.5-10.1); Carbon Dioxide 29 mmol/L (21-32); Chloride 111 mmol/L (98-107); GFR African American 109 mL/min; GFR Non-African American 90 mL/min; Glucose 100 mg/dL (74-106); Potassium 3.9 mmol/L (3.5-5.1); Sodium 145 mmol/L (136-145)
[2019-08-17 09:53] LABS: Urine Bacteria NONE SEEN /hpf (None Seen); Urine Blood TRACE /uL (Negative); Urine Specific Gravity 1.011 (1.001-1.035); Urine WBC 2 /hpf (0 - 5)
[2019-08-17 09:55] LABS: Alkaline Phosphatase 89 U/L (45-117); Bilirubin, Total 0.2 mg/dL (0.2-1.0); Total Protein 7.5 g/dL (6.4-8.2)
[2019-08-17] MEDS ORDERED: HYDROcodone-ACET 5/325MG TAB PO ONE (13:00)
[2019-08-17 14:00] VITALS: BP 153/64
== END 2019-08-17 15:22 | disposition home or self-care (01) ==
LOC: ER 08:09 → EDBD 08:09 → ER 15:22
DX: R60.0 Localized edema (principal); E46 Unspecified protein-calorie malnutrition; R51 Headache; M54.2 Cervicalgia; M25.551 Pain in right hip; M25.552 Pain in left hip; M19.90 Unspecified osteoarthritis, unspecified site; I11.0 Hypertensive heart disease with heart failure; I50.9 Heart failure, unspecified; W19.XXXA Unspecified fall, initial encounter; Y93.89 Activity, other specified; Y92.89 Other specified places as the place of occurrence of the external cause; Y99.8 Other external cause status
CPT/HCPCS: 36415; 70450; 71045; 72125; 72192; 80053; 81001; 84484; 85025; 93005

== ENCOUNTER 2019-10-25 13:04 | Emergency (ER) | payer MEDICARE, OTHER ==
[~2019-10-25] VITALS: Ht 152.4 cm; Wt 81.6 kg
[2019-10-25 15:10] VITALS: BP 138/61
== END 2019-10-25 15:22 | disposition home or self-care (01) ==
LOC: ER 13:04 → EDBD 13:04 → ER 15:22
DX: G44.209 Tension-type headache, unspecified, not intractable (principal); N39.0 Urinary tract infection, site not specified; F41.8 Other specified anxiety disorders; I11.0 Hypertensive heart disease with heart failure; I50.9 Heart failure, unspecified; Z90.710 Acquired absence of both cervix and uterus; Z90.89 Acquired absence of other organs
CPT/HCPCS: 70450; 81002

== ENCOUNTER 2019-11-05 17:30 | Inpatient (IN) | payer MEDICARE, OTHER ==
[~2019-11-05] VITALS: Ht 165.1 cm; Wt 82.2 kg
[2019-11-05 19:14] LABS: Basophils # (auto) 0 10 ^3/uL (0-0.2); Basophils % (auto) 0.7 % (0.0-2.0); Eosinophils # (auto) 0.2 10 ^3/uL (0-0.8); Eosinophils % (auto) 2.7 % (0.0-7.0); Hematocrit 40.1 % (36.0-46.0); Hemoglobin 13.3 g/dL (12.2-16.2); Lymphocytes # (auto) 1.6 10 ^3/uL (0.4-5.4); Lymphocytes % (auto) 21.7 % (10.0-50.0); Mean Corpuscular Hemoglobin 28.8 pg (28.0-32.0); Mean Corpuscular Hgb Conc. 33.1 g/dL (32.0-36.0); Mean Corpuscular Volume 86.8 fL (80.0-100.0); Monocytes # (auto) 0.8 10 ^3/uL (0-1.3); Monocytes % (auto) 10.7 % (0.0-12.0); Neutrophils # (auto) 4.8 10 ^3/uL (1.6-8.6); Neutrophils % (auto) 64.2 % (37.0-80.0); Nucleated Red Blood Cells % 0.1 %; Platelet Count (auto) 155 10^3/uL (140-450); Red Blood Cells 4.62 10^6/uL (4.0-5.20); Red Cell Distribution Width 14.1 % (11.8-14.3); White Blood Cell 7.4 10^3/uL (4.4-10.8)
[2019-11-05 19:23] LABS: INR 1.04 (0.9-1.15)
[2019-11-05 19:31] LABS: Alanine Aminotransferase 19 U/L (13-56); Albumin 3.3 g/dL (3.4-5.0); Anion Gap 4 (5-15); Blood Urea Nitrogen 20 mg/dL (7-18); Calcium 8.6 mg/dL (8.5-10.1); Carbon Dioxide 28 mmol/L (21-32); Chloride 109 mmol/L (98-107); Glucose 94 mg/dL (74-106); Potassium 3.6 mmol/L (3.5-5.1); Sodium 141 mmol/L (136-145)
[2019-11-05 19:39] LABS: Alkaline Phosphatase 96 U/L (45-117); Aspartate Aminotransferase 13 U/L (15-37); BUN/Creatinine Ratio 20.6; Bilirubin, Total 0.5 mg/dL (0.2-1.0); GFR African American 71 mL/min; GFR Non-African American 59 mL/min; Total Protein 7.7 g/dL (6.4-8.2)
[2019-11-05 21:33] LABS: Urine Bacteria NONE SEEN /hpf (None Seen); Urine Blood TRACE /uL (Negative); Urine Specific Gravity 1.013 (1.001-1.035); Urine WBC 3 /hpf (0 - 5)
[2019-11-05] MEDS ORDERED: MORPHINE SULF INJ 2 MG/ML SYRINGE 1ML IV ONE (23:30)
[2019-11-05] MEDS ORDERED: ONDANSETRON HCL 4 MG/2 ML VIAL IV ONE (23:45)
[2019-11-06] MEDS ORDERED: PIPERACILLIN-TAZOB 3.375GM 100 ML IV ONE
[2019-11-06] MEDS ORDERED: MORPHINE SULFATE 4 MG/ML SYR/VIAL IV ONE (01:15)
[2019-11-06] MEDS ORDERED: TEMAZEPAM 15 MG CAP PO PRN (04:45)
[2019-11-06] MEDS ORDERED: ONDANSETRON HCL 4 MG/2 ML VIAL IV PRN (04:45)
[2019-11-06] MEDS ORDERED: ACETAMINOPHEN 325 MG TAB PO PRN (04:45)
[2019-11-06] MEDS: CLINDAMYCIN 600MG IV 50 ML IV SCH ×3 (06:25→21:43)
[2019-11-06] MEDS: HYDROcodone-ACET 5/325MG TAB PO PRN (08:30)
[2019-11-06] MEDS: FAMOTIDINE 20 MG TAB PO SCH (09:53)
[2019-11-06] MEDS: ENALAPRIL MALEATE 10 MG TAB PO SCH (09:54)
[2019-11-06] MEDS ORDERED: FUROSEMIDE 20 MG TAB PO SCH (10:00)
[2019-11-06] MEDS: SODIUM CHLORIDE 0.9% 1,000 ML IV SCH (14:28)
[2019-11-06] MEDS: MORPHINE SULF INJ 2 MG/ML SYRINGE 1ML IV PRN ×3 (15:49→21:44)
[2019-11-06 18:12] VITALS: BP 111/48
--- NOTE | 2019-11-06 18:24 | NUR ---
MS admit from ER CARLIN CERDA admitted to tele/MS after SBAR received. Patient oriented to Livier Salinas, RN primary RN, unit, room, bed, and unit policies regarding patient care and visiting hours. Patient weighed by bedscale and encouraged to call if she needs something. All questions and concerns addressed, patient verbalized understanding. Note: Perkins cath in place, urine clear yellow. IV left AC.
[2019-11-06] MEDS ORDERED: LISI10TA6 (18:29)
--- NOTE | 2019-11-06 19:00 | NUR ---
Opening Shift Note Assumed care of patient, awake and alert. No S/S of distress/SOB or pain. Instructed on POC and to call for assist as needed, will continue to monitor.
[2019-11-06 20:00] VITALS: BP 120/58
--- NOTE | 2019-11-06 21:55 | NUR ---
Patient complaining of a lot of pain, medicated and antibiotics running. Patient resting.
[2019-11-06 22:00] VITALS: BP 120/58
--- NOTE | 2019-11-07 04:16 | NUR ---
IV insertion IV access obtained, via clean sterile technique by inserting 20 gauge catheter at forearm after 1 attempt. IV secured properly. No trauma to site. Patient tolerated well. Patient complaining of pain, medication given
[2019-11-07] MEDS: MORPHINE SULF INJ 2 MG/ML SYRINGE 1ML IV PRN ×4 (04:18→19:00)
[2019-11-07 05:00] VITALS: BP 125/67
[2019-11-07] MEDS: CLINDAMYCIN 600MG IV 50 ML IV SCH ×3 (05:23→21:31)
[2019-11-07 06:23] LABS: Basophils # (auto) 0.1 10 ^3/uL (0-0.2); Basophils % (auto) 0.7 % (0.0-2.0); Eosinophils # (auto) 0.1 10 ^3/uL (0-0.8); Eosinophils % (auto) 0.8 % (0.0-7.0); Hematocrit 34.7 % (36.0-46.0); Hemoglobin 11.5 g/dL (12.2-16.2); Lymphocytes # (auto) 1.4 10 ^3/uL (0.4-5.4); Lymphocytes % (auto) 15.5 % (10.0-50.0); Mean Corpuscular Hemoglobin 28.8 pg (28.0-32.0); Mean Corpuscular Volume 87.3 fL (80.0-100.0); Monocytes # (auto) 0.8 10 ^3/uL (0-1.3); Monocytes % (auto) 9.3 % (0.0-12.0); Neutrophils # (auto) 6.4 10 ^3/uL (1.6-8.6); Neutrophils % (auto) 73.7 % (37.0-80.0); Platelet Count (auto) 136 10^3/uL (140-450); Red Blood Cells 3.97 10^6/uL (4.0-5.20); Red Cell Distribution Width 14.3 % (11.8-14.3); White Blood Cell 8.8 10^3/uL (4.4-10.8)
[2019-11-07 06:38] LABS: Potassium 3.9 mmol/L (3.5-5.1)
[2019-11-07 06:40] LABS: BUN/Creatinine Ratio 20.7; Magnesium 2.2 mg/dL (1.6-2.6)
--- NOTE | 2019-11-07 07:30 | NUR ---
Opening Note Assumed patient care from VIRGILIO RN.
[2019-11-07 08:27] VITALS: BP 107/56
[2019-11-07] MEDS: ENALAPRIL MALEATE 10 MG TAB PO SCH (10:00)
[2019-11-07] MEDS: SODIUM CHLORIDE 0.9% 1,000 ML IV SCH ×2 (10:07→12:59)
[2019-11-07] MEDS: FAMOTIDINE 20 MG TAB PO SCH (10:08)
[2019-11-07] MEDS: HYDROcodone-ACET 5/325MG TAB PO PRN ×3 (11:10→20:34)
--- NOTE | 2019-11-07 12:36 | NUR ---
at bedside Dr. Burk at bedside discussing plan of care with patient. Patient to be scheduled for surgery on 11/07 at 0800.
--- NOTE | 2019-11-07 13:04 | NUR ---
Called Echo Spoke with Blake regarding MD request for Echo for surgery on 11/07. Per Blake, if there is no recent echo, will do today.
--- NOTE | 2019-11-07 14:51 | NUR ---
Called Echo Patient scheduled for echo today.
--- NOTE | 2019-11-07 15:00 | NUR ---
Echo at Bedside Echo at bedside
[2019-11-07 15:04] VITALS: BP 111/54
--- NOTE | 2019-11-07 16:20 | NUR ---
Pain Patient complaint of 10/10 pain on right ankle and right shoulder (previous rotator cuff injury), requesting [place] at this time for pain management.
--- NOTE | 2019-11-07 19:30 | NUR ---
Opening Shift Note Assumed care of patient, awake and alert. No S/S of distress/SOB. Instructed on POC and to call for assist PRN, will continue to monitor for changes Q1hr and PRN.
[2019-11-07 22:00] VITALS: BP 108/49
[2019-11-08] VITALS (14 sets, daily range): BP systolic 95–119; BP diastolic 40–66
[2019-11-08] MEDS: MORPHINE SULF INJ 2 MG/ML SYRINGE 1ML IV PRN ×4 (02:31→21:07)
--- NOTE | 2019-11-08 02:40 | NUR ---
Patient awake. Pt c/o pain, PRN Morphine administered. Pt reminded of NPO status for procedure in the am. EKG performed for checklist. Will continue to monitor.
[2019-11-08] MEDS: SODIUM CHLORIDE 0.9% 1,000 ML IV SCH ×2 (05:16→20:50)
[2019-11-08] MEDS: CLINDAMYCIN 600MG IV 50 ML IV SCH ×3 (05:38→21:30)
--- NOTE | 2019-11-08 07:30 | NUR ---
Opening Note Assumed patient care from NOC RN. Patient currently in bed, no signs of distress at this time, respirations even and unlabored. Will continue to monitor. BP 137/66, SpO2 98%, RR 20, HR 83. Safety precautions in place in place. Will continue to monitor.
--- NOTE | 2019-11-08 08:01 | NUR ---
Patient Off Unit Patient off unit for procedure.
[2019-11-08] MEDS ORDERED: MIDAZOLAM HCL 1MG/1ML-2 ML VIAL ONE ×2 (08:36→08:59)
[2019-11-08] MEDS ORDERED: fentaNYL CITRATE 100 MCG/2 ML VL ONE (08:36)
[2019-11-08] MEDS ORDERED: MORPHINE SULF(PF) 0.5MG/ML 10ML VIAL ONE (08:36)
[2019-11-08] MEDS ORDERED: TETRACAINE 1% INJ 2 ML VIAL IJ ONE (08:42)
[2019-11-08] MEDS ORDERED: PROPOFOL 10 MG/ML 20 ML IV ONE (08:58)
[2019-11-08] MEDS ORDERED: ONDANSETRON HCL 4 MG/2 ML VIAL IV PRN (09:30)
[2019-11-08] MEDS ORDERED: NALBUPHINE HCL 10 MG/1ml INJECTION SUBCUT ONE (09:30)
[2019-11-08] MEDS ORDERED: diphenhdrAMINE HCL 50 MG/1 ML VL IV PRN (09:30)
[2019-11-08] MEDS ORDERED: NALOXONE HCL 0.4 MG/ML VIAL IV PRN (09:30)
[2019-11-08] MEDS ORDERED: ePHEDrine SULFATE 50 MG/ML AMP IV PRN (09:30)
[2019-11-08] MEDS ORDERED: LABETALOL HCL 5 MG/ML 4ML SYRINGE IV PRN (09:30)
[2019-11-08] MEDS ORDERED: DexAMETHasone SOD PHOS 10MG/1ML VIAL INJ IV PRN (09:30)
[2019-11-08] MEDS ORDERED: HYDROmorphone HCL 2 MG/ML VL IV PRN (09:30)
[2019-11-08] MEDS: FAMOTIDINE 20 MG TAB PO SCH (10:00)
--- NOTE | 2019-11-08 11:25 | NUR ---
Report from OR Received report from NADIA Jimenez.
--- NOTE | 2019-11-08 11:55 | NUR ---
Patient Returned to Unit Patient returned to unit from OR. VS are as follows, HR 74, BP 101/45, RR 16, SpO2 98%. No signs of distress, respirations even and unlabored. Safety precautions are in place, will continue to monitor. Addendum: 11/08/19 at 1329 by TERESA VALVERDE RN RN Duramorph precautions in place, patient is tele box # [id number].
--- NOTE | 2019-11-08 15:00 | NUR ---
PT ON TELE MONITOR FOR CONT. PULSE OX. PT ON 2L SPO2 94%, HR 78. RN MADE AWARE.
--- NOTE | 2019-11-08 19:03 | NUR ---
Closing Note Report given to NOC RN. Patient currently showing no signs of distress, AOx4, RR at 22. Respirations even and unlabored.
--- NOTE | 2019-11-08 19:30 | NUR ---
Opening Shift Note Assumed care of patient, awake, AAOx4. No S/S of distress/SOB. Patient C/O pain 11/11 to right leg, S/P surgery. On 2L oxygen via nasal cannula, cont pulse ox on per protocol. Patient on bedrest. Dressing to right leg CDI. Bed in lowest locked position, side rails up x2, call light within reach. Instructed on POC and to call for assist PRN, will continue to monitor for changes Q1hr and PRN.
[2019-11-08] MEDS: HYDROcodone-ACET 5/325MG TAB PO PRN (20:00)
[2019-11-08 20:52] LABS: Urine Bacteria FEW /hpf (None Seen); Urine Blood 2+ /uL (Negative); Urine Hyaline Cast FEW /lpf (0 - 2); Urine Mucus FEW (None Seen); Urine Specific Gravity 1.015 (1.001-1.035); Urine WBC 3 /hpf (0 - 5)
[2019-11-09] VITALS (9 sets, daily range): BP systolic 101–129; BP diastolic 43–74
[2019-11-09] MEDS: MORPHINE SULF INJ 2 MG/ML SYRINGE 1ML IV PRN ×2 (01:40→05:21)
[2019-11-09] MEDS: CLINDAMYCIN 600MG IV 50 ML IV SCH ×3 (05:19→21:13)
[2019-11-09 05:43] LABS: Basophils # (auto) 0 10 ^3/uL (0-0.2); Basophils % (auto) 0.3 % (0.0-2.0); Eosinophils # (auto) 0 10 ^3/uL (0-0.8); Hematocrit 32.4 % (36.0-46.0); Lymphocytes # (auto) 0.7 10 ^3/uL (0.4-5.4); Lymphocytes % (auto) 7.7 % (10.0-50.0); Mean Corpuscular Hemoglobin 29.4 pg (28.0-32.0); Mean Corpuscular Hgb Conc. 33.9 g/dL (32.0-36.0); Mean Corpuscular Volume 86.7 fL (80.0-100.0); Monocytes # (auto) 0.6 10 ^3/uL (0-1.3); Monocytes % (auto) 6.7 % (0.0-12.0); Neutrophils # (auto) 7.8 10 ^3/uL (1.6-8.6); Neutrophils % (auto) 85.3 % (37.0-80.0); Platelet Count (auto) 121 10^3/uL (140-450); Red Blood Cells 3.74 10^6/uL (4.0-5.20); Red Cell Distribution Width 13.4 % (11.8-14.3); White Blood Cell 9.2 10^3/uL (4.4-10.8)
[2019-11-09 06:10] LABS: Potassium 4.2 mmol/L (3.5-5.1)
[2019-11-09 06:21] LABS: BUN/Creatinine Ratio 27.4; Calcium 8.7 mg/dL (8.5-10.1); Magnesium 2.3 mg/dL (1.6-2.6)
--- NOTE | 2019-11-09 07:30 | NUR ---
Opening Note Assumed patient care from VIRGILIO Ramírez.
--- NOTE | 2019-11-09 09:30 | NUR ---
at Station Dr. Haddad at station, per MD, discontinue Morphine and continue pain management with Sandy 10/325 q6 for pain.
[2019-11-09] MEDS: FAMOTIDINE 20 MG TAB PO SCH (09:52)
[2019-11-09] MEDS: SODIUM CHLORIDE 0.9% 1,000 ML IV SCH (09:53)
[2019-11-09] MEDS: HYDROcodone-ACET 10/325MG TAB PO PRN ×3 (10:01→22:04)
[2019-11-09] MEDS ORDERED: FLORASTOR (S. BOULARDII) 250 MG CAP PO ONE (11:09)
--- NOTE | 2019-11-09 11:31 | NUR ---
Up with PT Patient got up to chair with PT, no signs of distress at this time, respirations even and unlabored, will continue to monitor.
--- NOTE | 2019-11-09 12:00 | NUR ---
Doramorph Assessment 24 hour hourly vital signs after spinal anesthesia on 11/07 completed. Patient currently AOx4, no signs of distress at this time, vitals are as follows: BP 111/47, HR 61, RR 20 (even and unlabored), SpO2 95%. Monitors returned to charge office. Patient is currently on tele box #29, sinus rhythm. Will continue to monitor.
--- NOTE | 2019-11-09 12:25 | NUR ---
Est energy needs 7149-8650 kcal (18-20kcal/kg BW 82.6kg) Est protein needs 66-83g (0.8-1g/kg BW 82.6kg) Will reassess chaimn. Addendum: 11/09/19 at [address] Amended: Links added.
--- NOTE | 2019-11-09 12:39 | NUR ---
at Station Dr. Burk at bedside discussing plan of care with patient. Per MD, patient may possibly ready for discharge on Sunday or Sunday.
[2019-11-09] MEDS: ALPRAZolam 0.5 MG TAB PO PRN (19:34)
--- NOTE | 2019-11-09 23:19 | NUR ---
New IV New IV 22 gauge to left hand, blood return noted, flushes easily. Left forearm and left AC discontinued, pressure dressing applied. Patient tolerated well, respirations even and unlabored, bed in lowest setting, bed alarm on, safety precautions in place, will continue to monitor.
--- NOTE | 2019-11-10 01:15 | NUR ---
Patient Rounds Patient woke up and set off bed alarm while attempting to get out of bed stating she needed to "get something from [her] drawer." Patient reoriented to room and informed she is in the hospital and to stay in bed. Safety precautions in place, bed alarm is on, patient currently resting with eyes closed, respirations even and unlabored, will continue to monitor.
[2019-11-10 05:00] VITALS: BP 134/74
[2019-11-10] MEDS: CLINDAMYCIN 600MG IV 50 ML IV SCH ×3 (05:43→21:59)
[2019-11-10] MEDS: SODIUM CHLORIDE 0.9% 1,000 ML IV SCH (05:43)
[2019-11-10 06:26] LABS: Hematocrit 30.6 % (36.0-46.0); Hemoglobin 10.3 g/dL (12.2-16.2)
[2019-11-10] MEDS: HYDROcodone-ACET 10/325MG TAB PO PRN ×3 (06:59→22:00)
[2019-11-10 08:30] VITALS: BP 137/66
[2019-11-10] MEDS: FLORASTOR (S. BOULARDII) 250 MG CAP PO SCH (10:21)
[2019-11-10] MEDS: FAMOTIDINE 20 MG TAB PO SCH (10:21)
[2019-11-10] MEDS: ALPRAZolam 0.5 MG TAB PO PRN (10:22)
--- NOTE | 2019-11-10 10:48 | NUR ---
MD ROTHMANING MD ARROYO AT BEDSIDE. ALL QUESTIONS AND CONCERNS ADDRESSED AT THIS TIME.
[2019-11-10 12:52] VITALS: BP 153/73
[2019-11-10 16:46] VITALS: BP 146/67
--- NOTE | 2019-11-10 20:20 | NUR ---
ASSUMED CARE OF PATIENT
--- NOTE | 2019-11-10 20:25 | NUR ---
Opening Shift Note Assumed care of patient, awake and alert. No S/S of distress/SOB. Patient repositioned for comfort. Fall and safety precautions in place. Instructed on POC and to call for assist PRN, patient verbalized understanding and in agreement. Will continue to monitor for changes Q1hr and PRN.
[2019-11-10 22:00] VITALS: BP 122/58
[2019-11-11] MEDS: ALPRAZolam 0.5 MG TAB PO PRN ×2 (00:34→15:03)
[2019-11-11 04:53] VITALS: BP 139/69
[2019-11-11] MEDS: CLINDAMYCIN 600MG IV 50 ML IV SCH (05:10)
[2019-11-11] MEDS: HYDROcodone-ACET 10/325MG TAB PO PRN ×3 (05:16→18:53)
[2019-11-11 06:11] LABS: Basophils # (auto) 0 10 ^3/uL (0-0.2); Basophils % (auto) 0.8 % (0.0-2.0); Eosinophils # (auto) 0.2 10 ^3/uL (0-0.8); Eosinophils % (auto) 3.4 % (0.0-7.0); Hematocrit 31.5 % (36.0-46.0); Hemoglobin 10.5 g/dL (12.2-16.2); Lymphocytes # (auto) 1.6 10 ^3/uL (0.4-5.4); Lymphocytes % (auto) 29.1 % (10.0-50.0); Mean Corpuscular Hemoglobin 28.9 pg (28.0-32.0); Mean Corpuscular Hgb Conc. 33.4 g/dL (32.0-36.0); Mean Corpuscular Volume 86.7 fL (80.0-100.0); Monocytes # (auto) 0.7 10 ^3/uL (0-1.3); Monocytes % (auto) 13.3 % (0.0-12.0); Neutrophils # (auto) 2.9 10 ^3/uL (1.6-8.6); Neutrophils % (auto) 53.4 % (37.0-80.0); Platelet Count (auto) 136 10^3/uL (140-450); Red Blood Cells 3.64 10^6/uL (4.0-5.20); Red Cell Distribution Width 13.7 % (11.8-14.3); White Blood Cell 5.3 10^3/uL (4.4-10.8)
--- NOTE | 2019-11-11 07:31 | NUR ---
Opening Shift Note Assumed care of patient, awake and alert. No S/S of distress/SOB or pain. Instructed on POC and to call for assist PRN, will continue to monitor for changes Q1hr and PRN.
[2019-11-11 07:50] VITALS: BP 126/64
[2019-11-11] MEDS: FLORASTOR (S. BOULARDII) 250 MG CAP PO SCH (10:09)
[2019-11-11] MEDS: FAMOTIDINE 20 MG TAB PO SCH (10:10)
--- NOTE | 2019-11-11 11:05 | NUR ---
MD ROTHMANING MD ARROYO AT BEDSIDE. ALL QUESTIONS AND CONCERNS ADDRESSED AT THIS TIME.
[2019-11-11 12:02] VITALS: BP 125/63
--- NOTE | 2019-11-11 12:37 | NUR ---
MD ANTONIO ORTIZ AT BEDSIDE. RECOMMENDS XARELTO 10MG PO DAILY FOR 30 DAYS AFTER DISCHARGE
--- NOTE | 2019-11-11 13:36 | NUR ---
ss consult Per consult no pcp. Socorro Sheriff seen patient and assigned Dr Dove. Addendum: 11/11/19 at 1336 by Socorro Douglas Amended: Links added.
--- NOTE | 2019-11-11 14:00 | NUR ---
Culp catheter dc'd Order to discontinue culp catheter. Culp dc'd with clean technique following deflation of balloon. Patient tolerated well with no complaints of pain. Continue care.
[2019-11-11] MEDS: CLINDAMYCIN HCL 150 MG CAP PO SCH ×2 (15:01→21:51)
[2019-11-11 16:09] VITALS: BP 139/67
--- NOTE | 2019-11-11 17:26 | NUR ---
[facility] CONTACT PER REPRESENTATIVE MARKS THEY WILL NEED A COPY OF THE DISCHARGE SUMMARY, WOUND CARE ORDER, PHYSICAL THERAPY ORDER FAXED TO THEM. CONTACT INFO FAX ([phone]) OFFICE PHONE ([phone])
--- NOTE | 2019-11-11 19:31 | NUR ---
Opening Shift Note Assumed care of patient, awake and alert x 4. No S/S of distress/SOB. Bed is in lowest position and locked. Call light within reach. Board updated. Tele box number matches monitor and leads are in correct placement. Instructed on POC and to call for assist PRN, will continue to monitor for changes Q1hr and PRN.
[2019-11-11 22:00] VITALS: BP 121/48
[2019-11-12 04:53] VITALS: BP 129/68
[2019-11-12] MEDS: CLINDAMYCIN HCL 150 MG CAP PO SCH ×2 (05:10→15:39)
[2019-11-12] MEDS: HYDROcodone-ACET 10/325MG TAB PO PRN ×2 (05:11→10:53)
[2019-11-12] MEDS: ALPRAZolam 0.5 MG TAB PO PRN (05:11)
[2019-11-12 08:00] VITALS: BP 123/67
--- NOTE | 2019-11-12 08:53 | NUR ---
Assessment Patient is a 78-year-old female who is alert. Patient has dementia and assessment was completed with patient Tyler ). Per Tyler prior to admission patient lived home with him and functioned with assistance. Tyler informed me patient has a walker for home use. Per Tyler patient will return to her prior living arrangement post discharge and family will transport patient home. Per Tyler patient is on service with [facility] [employer] and he would like patient to resume service. Advised patient there is a social service consult for home health safety evaluation, physical therapy, medication management, vitals, wheelchair and bed side commode. Informed patient clinical information will be faxed to [facility] and [facility] for DME. Informed Tyler he has the right to participate in all discharge planning. Tyler verbalized understanding and agreed to discharge plan. Faxed clinical information to [facility] includes the [facility] and [facility] for wheelchair and bedside commode. Addendum: 11/12/19 at 0854 by MUKUND GREENE Amended: Links added.
[2019-11-12] MEDS: FAMOTIDINE 20 MG TAB PO SCH (10:00)
--- NOTE | 2019-11-12 10:00 | NUR ---
WOUND CARE NOTE: IN TO SEE PATIENT PER WOUND CONSULT REQUEST AT THIS TIME. PATIENT WAS NOTED TO HAVE TWO SMALL INTACT WOUNDS TO THE RIGHT MEDIAL THIGH, ABOVE PATIENT'S SOFT CAST. WOUND PHOTOS TAKEN BY BEDSIDE NURSE FOR REFERENCE. PATIENT IS NOTED TO HAVE TWO SMALL INTACT BLISTERS THAT APPEAR TO BE RESOLVING, WITH NO SERUM NOTED AT THIS POINT. NO DRESSINGS REQUIRED AT THIS TIME. PATIENT HAS OLIVIA SCORE IS 15. SHE REQUIRES MINIMAL ASSISTANCE IN TURNING/REPOSITIONING. NO FURTHER WOUND CARE MONITORING NEEDED AT THIS TIME. Addendum: 11/12/19 at 1704 by Tracy Velez RN Amended: Links added.
[2019-11-12] MEDS: FLORASTOR (S. BOULARDII) 250 MG CAP PO SCH (10:27)
[2019-11-12] MEDS ORDERED: RIV15T PO (10:30)
[2019-11-12] MEDS ORDERED: SACC250C PO (10:30)
[2019-11-12] MEDS ORDERED: CLIN300C8 PO (10:30)
[2019-11-12 12:00] VITALS: BP 136/70
[2019-11-12 15:33] VITALS: BP 136/74
--- NOTE | 2019-11-12 17:00 | NUR ---
Discharge note Discharge instructions given as ordered. Encourage to follow up with PMD as instructed. All questions and concerns addressed. Patient verbalized understanding. IV removed with catheter intact, pressure dressing applied. Telemetry unit returned to ICU. Patient taken to vehicle via wheelchair with all personal belongings, accompanied by staff member. No distress noted at time of departure.
--- NOTE | 2019-11-12 17:08 | NUR ---
D/C Planning Received a call from Fatemeh Ward advising me provider needs to include in progress notes reason why patient needs a wheelchair and bedside commode. Informed Dr. Haddad regarding order for DME. Per Provider she will not include notes in progress notes. Per Fatemeh Ward they will not be able to process order for wheelchair and bedside commode due to not meeting medicare criteria doctor needs to documents in progress notes stating why patient has a mobility limitation that can not be resolve with cane or walker. Informed bedside nurse.
--- NOTE | 2019-11-12 17:45 | NUR ---
updated family and patient regarding change in DME delivery. Patients daughter Bindu verbalized understanding.
== END 2019-11-12 17:00 | disposition home health service (06) | DRG 493 ==
LOC: EDBD 17:30 → ER 17:30 → OVERFLOW 17:31 → EAST 11-06 17:37
PROVIDERS: ADMIT Nurse Practitioner; ATTEND Internal Medicine
PROC: 0SBF0ZZ Excision of Right Ankle Joint, Open Approach (ICD-10-PCS; 2019-11-08)
PROC: 0SSF0ZZ Reposition Right Ankle Joint, Open Approach (ICD-10-PCS; 2019-11-08)
PROC: 0MQQ0ZZ Repair Right Ankle Bursa and Ligament, Open Approach (ICD-10-PCS; 2019-11-08)
PROC: 0QSJ04Z Reposition Right Fibula with Internal Fixation Device, Open Approach (ICD-10-PCS; principal; 2019-11-08 08:28)
DX: S82.61XA Displaced fracture of lateral malleolus of right fibula, initial encounter for closed fracture (principal); L03.115 Cellulitis of right lower limb; F03.90 Unspecified dementia, unspecified severity, without behavioral disturbance, psychotic disturbance, mood disturbance, and anxiety; I10 Essential (primary) hypertension; D64.9 Anemia, unspecified; F29 Unspecified psychosis not due to a substance or known physiological condition; M65.9 Synovitis and tenosynovitis, unspecified; M81.0 Age-related osteoporosis without current pathological fracture; F32.9 Major depressive disorder, single episode, unspecified; W18.39XA Other fall on same level, initial encounter; F41.9 Anxiety disorder, unspecified; Z80.1 Family history of malignant neoplasm of trachea, bronchus and lung; Z80.3 Family history of malignant neoplasm of breast; Z80.41 Family history of malignant neoplasm of ovary; Z80.8 Family history of malignant neoplasm of other organs or systems; Z81.8 Family history of other mental and behavioral disorders; Z82.0 Family history of epilepsy and other diseases of the nervous system; Z82.3 Family history of stroke; Z82.49 Family history of ischemic heart disease and other diseases of the circulatory system; Z82.5 Family history of asthma and other chronic lower respiratory diseases; Z82.62 Family history of osteoporosis; Z83.3 Family history of diabetes mellitus; Z90.710 Acquired absence of both cervix and uterus; Y93.89 Activity, other specified; Y92.89 Other specified places as the place of occurrence of the external cause; Y99.8 Other external cause status; S93.421A Sprain of deltoid ligament of right ankle, initial encounter; M19.90 Unspecified osteoarthritis, unspecified site
CPT/HCPCS: 36415; 51702; 70450; 71045; 72125; 72192; 73600; 73610; 73700; 76001; 80048; 80053; 81001; 83735; 84484; 85014; 85018; 85025; 85610; 86850; 86900; 86901; 93306; 96361; 96365; 96366; 96375; 96376; 97110; 97530; G0378; J2250; J2405; J2543; J2704; J3490

== ENCOUNTER 2020-03-11 13:04 | Inpatient (IN) | payer MEDICARE, OTHER ==
[~2020-03-11] VITALS: Ht 152.4 cm; Wt 69.9 kg
[~2020-03-11 13:04] MED LIST changes: +CLIN300C8 PO; -ENAL2.5T PO; +ENAL2.5T7 PO; -FURO20TA3 PO; +LISI-648; -NITR100C44 PO; -POTA10TA51 PO; +RIV15T PO; +SACC250C PO
[2020-03-11] MEDS ORDERED: SODIUM CHLORIDE 0.9% 1,000 ML IV ONE (13:30)
[2020-03-11 14:47] LABS: Basophils # (auto) 0.1 10 ^3/uL (0-0.2); Basophils % (auto) 0.9 % (0.0-2.0); Eosinophils # (auto) 0.2 10 ^3/uL (0-0.8); Eosinophils % (auto) 1.9 % (0.0-7.0); Hematocrit 38.3 % (36.0-46.0); Hemoglobin 12.7 g/dL (12.2-16.2); Lymphocytes # (auto) 2.3 10 ^3/uL (0.4-5.4); Lymphocytes % (auto) 25.6 % (10.0-50.0); Mean Corpuscular Hemoglobin 28.5 pg (28.0-32.0); Mean Corpuscular Hgb Conc. 33.1 g/dL (32.0-36.0); Mean Corpuscular Volume 86.2 fL (80.0-100.0); Monocytes # (auto) 0.9 10 ^3/uL (0-1.3); Monocytes % (auto) 10.2 % (0.0-12.0); Neutrophils # (auto) 5.5 10 ^3/uL (1.6-8.6); Neutrophils % (auto) 61.4 % (37.0-80.0); Nucleated Red Blood Cells % 0.1 %; Platelet Count (auto) 162 10^3/uL (140-450); Red Blood Cells 4.44 10^6/uL (4.0-5.20); Red Cell Distribution Width 14.6 % (11.8-14.3); White Blood Cell 8.9 10^3/uL (4.4-10.8)
[2020-03-11 14:49] LABS: Albumin 3.3 g/dL (3.4-5.0); Anion Gap 4 (5-15); Blood Urea Nitrogen 34 mg/dL (7-18); Carbon Dioxide 31 mmol/L (21-32); Chloride 106 mmol/L (98-107); Glucose 84 mg/dL (74-106); Potassium 3.8 mmol/L (3.5-5.1); Sodium 141 mmol/L (136-145)
[2020-03-11 14:55] LABS: Alanine Aminotransferase 13 U/L (13-56); Alkaline Phosphatase 110 U/L (45-117); Aspartate Aminotransferase 11 U/L (15-37); BUN/Creatinine Ratio 31.8; Bilirubin, Total 0.3 mg/dL (0.2-1.0); GFR African American 63 mL/min; GFR Non-African American 52 mL/min; Total Protein 7.8 g/dL (6.4-8.2)
[2020-03-11 15:06] LABS: INR 0.99 (0.9-1.15); Partial Thromboplastin Time 22.5 sec (23.0-31.2)
[2020-03-11] MEDS ORDERED: KETOROLAC TROMETH 30 MG/ML 1ML VIAL IV ONE (17:30)
[2020-03-11] MEDS ORDERED: cefTRIAXone W LIDOCAINE 1 GM IM IM ONE (17:30)
[2020-03-11] MEDS ORDERED: HYDROcodone-ACET 10/325MG TAB PO ONE (17:30)
[2020-03-11] MEDS ORDERED: MORPHINE SULF INJ 2 MG/ML SYRINGE 1ML IV PRN ×3 (17:45→23:15)
[2020-03-11] MEDS ORDERED: NITROGLYCERIN 0.4 MG SL TAB SL PRN ×2 (17:45→23:15)
[2020-03-11 17:58] LABS: Urine Bacteria FEW /hpf (None Seen); Urine Blood TRACE /uL (Negative); Urine Specific Gravity 1.014 (1.001-1.035); Urine WBC 219 /hpf (0 - 5)
[2020-03-11] MEDS ORDERED: cefTRIAXone 1GM/50ML D5W 50 ML IV ONE (18:45)
[2020-03-11] MEDS ORDERED: AMIT25TA9 PO (18:47)
[2020-03-11] MEDS ORDERED: POTA8TAB2 PO (18:47)
[2020-03-11] MEDS ORDERED: ALPR0.5T7 PO (18:47)
[2020-03-11] MEDS ORDERED: FURO20TA3 PO (18:47)
[2020-03-11] MEDS ORDERED: HYDR-531 PO (18:47)
[2020-03-11] MEDS ORDERED: LISI-648 PO (18:47)
--- NOTE | 2020-03-11 20:44 | NUR ---
Patient was not a r/o covid patient so room assignment was changed to [facility] Shreya
--- NOTE | 2020-03-11 20:45 | NUR ---
Patient arrived to unit via gurney. Assumed care of patient, awake and alert. No S/S of distress/SOB or pain. Instructed on POC and to call for assist PRN, safety measures in place call light with in reach, side rails up x2 and bed in lowest position. will continue to monitor for changes Q1hr and PRN.
--- NOTE | 2020-03-11 22:00 | NUR ---
Called hospitalist patient requesting norco and ativan which are medications she takes at home. Hospitalist ordered norco 10/325mg 1 tab po q6hr prn and ativan 1mg 1 tab po q6hr prn. read back, reviewed and verified orders to Hospitalist.
[2020-03-11 22:23] VITALS: BP 134/63
[2020-03-11] MEDS ORDERED: HYDROcodone-ACET 10/325MG TAB PO PRN (22:45)
[2020-03-11] MEDS: LORazepam 0.5 MG TAB PO PRN (23:01)
--- NOTE | 2020-03-11 23:02 | NUR ---
Patient complained of 10/10 pain to right ankle administered pain medication at this time.
[2020-03-11] MEDS ORDERED: ALUM & MAG HYDROX-SIMETH LIQ(MAALOX) 30 ML PO PRN (23:15)
[2020-03-11] MEDS ORDERED: ONDANSETRON HCL 4 MG/2 ML VIAL IV PRN (23:15)
[2020-03-11] MEDS ORDERED: ACETAMINOPHEN 325 MG TAB PO PRN (23:15)
[2020-03-11] MEDS ORDERED: SODIUM CHLORIDE 0.9% 1,000 ML IV SCH (23:15)
[2020-03-11] MEDS ORDERED: hydrALAZINE HCL 25 MG TAB PO PRN (23:15)
--- NOTE | 2020-03-12 00:02 | NUR ---
Reassessed pain patient states 0/10 pain at this time.
[2020-03-12 00:16] LABS: Amphetamine Screen, Urine NEGATIVE (NEGATIVE); Barbiturate Scree,Urine NEGATIVE (NEGATIVE); Benzodiazephine Screen, Urine NEGATIVE (NEGATIVE); Cannabinoid Screen, Urine NEGATIVE (NEGATIVE); Cocaine Screen, Urine NEGATIVE (NEGATIVE); Opiate Scree,Urine POSITIVE (NEGATIVE); Phencyclidine Screen, Urine NEGATIVE (NEGATIVE)
[2020-03-12 02:13] LABS: Cholesterol 125 mg/dL (< 200)
[2020-03-12 02:16] LABS: HDL Cholesterol 40 mg/dL (40-59); LDL Cholesterol 65 mg/dL (< 100); Triglycerides 152 mg/dL (< 150)
[2020-03-12] MEDS: HYDROcodone-ACET 5/325MG TAB PO PRN ×2 (02:53→10:13)
--- NOTE | 2020-03-12 02:53 | NUR ---
Patient c/o pain 6/10 to bilateral lower extremities. Administered pain medication at this time.
--- NOTE | 2020-03-12 03:53 | NUR ---
Pain reassessment patient has 0/10 pain.
[2020-03-12 05:07] VITALS: BP 120/64
--- NOTE | 2020-03-12 07:10 | NUR ---
Endorsed care to day shift RN, Patient has no sob/pain/or distress. safety measures in place call light with in reach, bed in lowest position and side rails up x2.
[2020-03-12] MEDS: LORazepam 0.5 MG TAB PO PRN (08:22)
[2020-03-12] MEDS: CALCIUM W/VIT D (600MG/400IU) TAB PO SCH ×2 (08:22→19:02)
[2020-03-12] MEDS: cefTRIAXone 1GM/50ML D5W 50 ML IV SCH (08:25)
[2020-03-12 09:00] VITALS: BP 167/67
--- NOTE | 2020-03-12 09:02 | NUR ---
off unit Patien down to radiology at this time for additional Carotid Doppler imaging as bedside procedure was un-clear.
[2020-03-12] MEDS ORDERED: LISINOPRIL 10 MG TAB PO SCH (10:00)
[2020-03-12] MEDS: AZITHROMYCIN 500MG/ 250ML 250 ML IV SCH (10:12)
[2020-03-12] MEDS: FLORASTOR (S. BOULARDII) 250 MG CAP PO SCH (10:13)
[2020-03-12] MEDS: ENOXAPARIN SOD 40 MG/0.4 ML SYRINGE SC SCH (10:14)
[2020-03-12] MEDS: ALPRAZolam 0.5 MG TAB PO SCH ×2 (10:16→21:31)
[2020-03-12] MEDS: MORPHINE SULF INJ 2 MG/ML SYRINGE 1ML IV PRN ×2 (12:45→17:05)
[2020-03-12 13:00] VITALS: BP 148/68
--- NOTE | 2020-03-12 16:45 | NUR ---
PT REFUSED P.T. TODAY
[2020-03-12 17:00] VITALS: BP 127/55
--- NOTE | 2020-03-12 19:05 | NUR ---
Opening Shift Note Assumed care of patient from day shift RN, patient awake and alert and oriented x4. No S/S of distress/SOB or pain. Instructed on POC and to call for assist PRN, safety measures in place call light with in reach bed in lowest position and side rails up x2. will continue to monitor for changes Q1hr and PRN.
[2020-03-12] MEDS: AMITRIPTYLINE HCL 25 MG TAB PO SCH (21:31)
[2020-03-12 22:28] VITALS: BP 108/46
[2020-03-13 05:05] VITALS: BP 144/61
[2020-03-13] MEDS: DOCUSATE SOD 100 MG CAP PO PRN ×2 (06:00→21:27)
[2020-03-13] MEDS: HYDROcodone-ACET 5/325MG TAB PO PRN ×4 (06:00→20:17)
[2020-03-13 06:27] LABS: Basophils # (auto) 0 10 ^3/uL (0-0.2); Basophils % (auto) 0.6 % (0.0-2.0); Eosinophils # (auto) 0.2 10 ^3/uL (0-0.8); Eosinophils % (auto) 3.5 % (0.0-7.0); Hematocrit 35.9 % (36.0-46.0); Hemoglobin 11.9 g/dL (12.2-16.2); Lymphocytes # (auto) 1.7 10 ^3/uL (0.4-5.4); Lymphocytes % (auto) 28.4 % (10.0-50.0); Mean Corpuscular Hemoglobin 28.8 pg (28.0-32.0); Mean Corpuscular Volume 87.2 fL (80.0-100.0); Monocytes # (auto) 0.7 10 ^3/uL (0-1.3); Monocytes % (auto) 10.8 % (0.0-12.0); Neutrophils # (auto) 3.5 10 ^3/uL (1.6-8.6); Neutrophils % (auto) 56.7 % (37.0-80.0); Nucleated Red Blood Cells % 0.2 %; Platelet Count (auto) 152 10^3/uL (140-450); Red Blood Cells 4.12 10^6/uL (4.0-5.20); Red Cell Distribution Width 14.1 % (11.8-14.3); White Blood Cell 6.2 10^3/uL (4.4-10.8)
[2020-03-13 06:48] LABS: BUN/Creatinine Ratio 26.7; Calcium 8.9 mg/dL (8.5-10.1); Magnesium 2.4 mg/dL (1.6-2.6); Potassium 3.9 mmol/L (3.5-5.1)
--- NOTE | 2020-03-13 07:10 | NUR ---
Opening Shift Note Assumed care of patient, awake and alert. No S/S of SOB. Patient complained of generalized pain at a pain level of 10 out of 10. Will administer PRN pain medication. Instructed on POC and to call for assist PRN, will continue to monitor for changes Q1hr and PRN. Assisted with ADLs. Bed locked in lowest position, HOB elevated at least 30 degrees, call light is within reach and side rails up x 2.
--- NOTE | 2020-03-13 07:19 | NUR ---
Endorsed care to day shift RN. patient has no distress/pain/or sob. safety measures in place call light with in reach, side rails up x2 and bed in lowest position.
[2020-03-13] MEDS: CALCIUM W/VIT D (600MG/400IU) TAB PO SCH ×2 (07:55→17:49)
[2020-03-13] MEDS: MORPHINE SULF INJ 2 MG/ML SYRINGE 1ML IV PRN (07:56)
[2020-03-13 08:35] VITALS: BP 129/63
[2020-03-13] MEDS: FLORASTOR (S. BOULARDII) 250 MG CAP PO SCH (09:01)
[2020-03-13] MEDS: ALPRAZolam 0.5 MG TAB PO SCH ×2 (09:01→21:27)
[2020-03-13] MEDS: ENOXAPARIN SOD 40 MG/0.4 ML SYRINGE SC SCH (09:02)
[2020-03-13] MEDS: LISINOPRIL 10 MG TAB PO SCH (09:02)
[2020-03-13] MEDS: cefTRIAXone 1GM/50ML D5W 50 ML IV SCH (09:04)
--- NOTE | 2020-03-13 10:00 | NUR ---
PT REFUSED P.T. BECAUSE OF PAIN.
[2020-03-13] MEDS: AZITHROMYCIN 500MG/ 250ML 250 ML IV SCH (10:17)
--- NOTE | 2020-03-13 11:18 | NUR ---
IV insertion IV access obtained, via clean sterile technique by inserting 22 gauge catheter at left wrist after 1 attempt. IV secured properly. No trauma to site. Patient tolerated well.
--- NOTE | 2020-03-13 11:19 | NUR ---
IV removal IV DC'd at left hand due to redness and pain at site with clean sterile technique, catheter fully intact. Pressure dressing applied to site. Patient tolerated well.
--- NOTE | 2020-03-13 11:52 | NUR ---
ROUNDS DR ARROYO AT BEDSIDE. ORDERS RECEIVED AND VERIFIED. CONTINUE CARE.
[2020-03-13 12:28] VITALS: BP 113/59
--- NOTE | 2020-03-13 15:00 | NUR ---
IV removal IV DC'd left wrist due to burning with clean sterile technique, catheter fully intact. Pressure dressing applied to site. Patient tolerated well.
[2020-03-13 16:29] VITALS: BP 121/66
--- NOTE | 2020-03-13 16:30 | NUR ---
IV insertion IV access obtained, via clean sterile technique by inserting 22 gauge catheter at right wrist after 1 attempt. IV secured properly. No trauma to site. Patient tolerated well.
--- NOTE | 2020-03-13 18:09 | NUR ---
[id number] 03/13 - faxed to [facility] at [phone] face sheet, order for DME (FWW), H/P WT and HT. Pending review and delivery of DME to bedside. Addendum: 03/15/20 at 0952 by Lynn Andrade RN [id number] 03/15/20 - Contacted [facility] AT [phone], to f/u on DME nursing staffing coordinator confirmed receiving all faxed documents. She is faxing [id number] for MD to [facility].
--- NOTE | 2020-03-13 19:30 | NUR ---
Opening Shift Note Assumed care of patient, awake and alert x4. No S/S of distress/SOB or pain. Call light is within reach, side rails up x2, bed is in the lowest position, bed alarm is on. Instructed on POC and to call for assist PRN. All questions and concerns answered, will continue to monitor for changes Q1hr and PRN.
--- NOTE | 2020-03-13 19:30 | NUR ---
CLOSING NOTE ENDORSED CARE TO NOC SHIFT RN
[2020-03-13] MEDS: AMITRIPTYLINE HCL 25 MG TAB PO SCH (21:27)
[2020-03-13 23:00] VITALS: BP 135/65
[2020-03-14] MEDS: HYDROcodone-ACET 5/325MG TAB PO PRN ×4 (02:29→18:30)
[2020-03-14 05:10] VITALS: BP 120/59
--- NOTE | 2020-03-14 07:15 | NUR ---
Opening Shift Note Assumed care of patient, awake and alert. No S/S of distress/SOB. Patient complaining of mild generalized pain at this time. Will administer PRN pain medication. Instructed on POC and to call for assist PRN, will continue to monitor for changes Q1hr and PRN. Assisted patient with ambulating to the bathroom. Bed locked in lowest position, HOB elevated at least 30 degrees, call light is within reach and side rails up x 2.
[2020-03-14] MEDS: CALCIUM W/VIT D (600MG/400IU) TAB PO SCH ×2 (07:38→17:39)
[2020-03-14 08:20] VITALS: BP 121/66
[2020-03-14] MEDS: ALPRAZolam 0.5 MG TAB PO SCH ×2 (09:02→22:08)
[2020-03-14] MEDS: cefTRIAXone 1GM/50ML D5W 50 ML IV SCH (09:03)
[2020-03-14] MEDS: LISINOPRIL 10 MG TAB PO SCH (09:03)
[2020-03-14] MEDS: ENOXAPARIN SOD 40 MG/0.4 ML SYRINGE SC SCH (09:17)
[2020-03-14] MEDS: AZITHROMYCIN 500MG/ 250ML 250 ML IV SCH (10:33)
[2020-03-14] MEDS: FLORASTOR (S. BOULARDII) 250 MG CAP PO SCH (10:33)
[2020-03-14] MEDS ORDERED: SUCRALFATE 1 GM/10 ML ORAL SUSP PO ONE (12:45)
[2020-03-14] MEDS ORDERED: PANTOPRAZOLE 40 MG TAB PO ONE (12:45)
[2020-03-14 12:56] VITALS: BP 98/64
--- NOTE | 2020-03-14 13:27 | NUR ---
Patient taken down for abdominal CT
--- NOTE | 2020-03-14 13:39 | NUR ---
PATIENT RETURNED TO ROOM. NO SIGNS OF RESPIRATORY DISTRESS AT THIS TIME. PATIENT COMPLAINING OF MILD PAIN AT THE SACRUM. WILL ADMINISTER PRN PAIN MEDICATION.
[2020-03-14 16:54] VITALS: BP 127/64
[2020-03-14] MEDS: SUCRALFATE 1 GM/10 ML ORAL SUSP PO SCH (17:39)
--- NOTE | 2020-03-14 19:05 | NUR ---
CLOSING NOTE ENDORSED CARE TO NOC SHIFT RN
--- NOTE | 2020-03-14 20:00 | NUR ---
RECEIVED PATIENT FROM DAY SHIFT RN. PATIENT RESTING IN BED. NO S/S OF DISTRESS NOTED. C/O PAIN @ 10/10 AFTER NORCO GIVEN EARLIER, WILL ADMINISTER PATIENT MORPHINE LATER. POC INSTRUCTED AND ENCOURAGED PATIENT TO CALL FOR RAILROAD MAINTENANCE CLERK IF NEEDED. BED IN LOWEST POSITION WITH SIDE RAILS UP X 2. CALL BARAJAS WITHIN REACH. ALARM ON. CONTINUE TO MONITOR FOR CHANGES Q1H AND PRN.
[2020-03-14] MEDS: MORPHINE SULF INJ 2 MG/ML SYRINGE 1ML IV PRN (20:39)
--- NOTE | 2020-03-14 20:41 | NUR ---
MEDICATED PATIENT FOR PAIN @ 03/13. CONTINUE TO MONITOR
--- NOTE | 2020-03-14 21:42 | NUR ---
IV insertion IV access obtained, via clean sterile technique by inserting [22] gauge catheter at [LFA] after [1] attempt(s). IV secured properly. No trauma to site. Patient tolerated well. IV SITE TURNED RED WHEN FLUSHING WITH NS, REMOVED NOW. IV DC'd with clean sterile technique, catheter fully intact. Pressure dressing applied to site. Patient tolerated well. NOTE:
[2020-03-14] MEDS: AMITRIPTYLINE HCL 25 MG TAB PO SCH (22:00)
--- NOTE | 2020-03-14 22:05 | NUR ---
HOSPITALIST Called/paged LINDA OSHEA called re:PATIENT REQUESTED TO HAVE NORCO 10/325MG INSTEAD OF NORCO 5/325 MG SHE USUALLY TAKES AT HOME FOR PAIN. Waiting for call back. Continue care.
--- NOTE | 2020-03-14 22:42 | NUR ---
HOSPITALIST returned call LINDA OSHEA returned call, updated on patient status and reason for call, orders received. NORCO 7.5/325MG PO ONCE. Continue care.
[2020-03-14] MEDS ORDERED: HYDROcodone-ACET 7.5/325MG TAB PO ONE (23:00)
[2020-03-14 23:11] VITALS: BP 121/54
--- NOTE | 2020-03-15 01:15 | NUR ---
PATIENT SLEEPING. NO S/S OF DISTRESS NOTED. CONTINUE CARE.
[2020-03-15 05:12] VITALS: BP 122/59
--- NOTE | 2020-03-15 05:55 | NUR ---
ASSISTED PATIENT TO BATHROOM AND BACK TO BED. PATIENT TOLERATED WELL. C/O PAIN @ 03/13. WILL COME BACK FOR MEDICATION. CONTINUE TO MONITOR.
[2020-03-15] MEDS: MORPHINE SULF INJ 2 MG/ML SYRINGE 1ML IV PRN (06:10)
[2020-03-15] MEDS: SUCRALFATE 1 GM/10 ML ORAL SUSP PO SCH ×3 (06:11→16:39)
--- NOTE | 2020-03-15 06:11 | NUR ---
MEDICATED PATIENT FOR PAIN @ 03/13. CONTINUE TO MONITOR
[2020-03-15 06:12] LABS: Basophils # (auto) 0.1 10 ^3/uL (0-0.2); Basophils % (auto) 0.8 % (0.0-2.0); Eosinophils # (auto) 0.3 10 ^3/uL (0-0.8); Eosinophils % (auto) 4.6 % (0.0-7.0); Hematocrit 35.1 % (36.0-46.0); Hemoglobin 11.7 g/dL (12.2-16.2); Lymphocytes % (auto) 32.5 % (10.0-50.0); Mean Corpuscular Hemoglobin 28.8 pg (28.0-32.0); Mean Corpuscular Hgb Conc. 33.4 g/dL (32.0-36.0); Mean Corpuscular Volume 86.1 fL (80.0-100.0); Monocytes # (auto) 0.7 10 ^3/uL (0-1.3); Neutrophils # (auto) 3.1 10 ^3/uL (1.6-8.6); Neutrophils % (auto) 51.1 % (37.0-80.0); Platelet Count (auto) 164 10^3/uL (140-450); Red Blood Cells 4.07 10^6/uL (4.0-5.20); Red Cell Distribution Width 14.2 % (11.8-14.3); White Blood Cell 6.1 10^3/uL (4.4-10.8)
[2020-03-15 06:30] LABS: Potassium 3.9 mmol/L (3.5-5.1)
--- NOTE | 2020-03-15 06:40 | NUR ---
REASSESSED PAIN, 0/10. CONTINUE TO MONITOR.
[2020-03-15 06:50] LABS: BUN/Creatinine Ratio 24.7; Calcium 9.1 mg/dL (8.5-10.1)
--- NOTE | 2020-03-15 07:30 | NUR ---
Opening Shift Note Assumed care of patient, awake and alert. No S/S of distress/SOB. Patient complaining of 10/ headache pain at this time, will medicate per MD orders. Updated on POC and instructed to call for assistance PRN, patient verbalized understanding. Bed locked in lowest position, call light is within reach and side rails up x 2. Will continue to monitor q1hr and PRN for changes. Addendum: 03/15/20 at 0801 by Patricia Tse RN BED ALARM ON AND FALL PRECAUTIONS IN PLACE.
[2020-03-15] MEDS: CALCIUM W/VIT D (600MG/400IU) TAB PO SCH ×2 (07:52→17:21)
[2020-03-15 09:00] VITALS: BP 161/82
[2020-03-15] MEDS: PANTOPRAZOLE 40 MG TAB PO SCH (09:04)
[2020-03-15] MEDS: FLORASTOR (S. BOULARDII) 250 MG CAP PO SCH (09:05)
[2020-03-15] MEDS: ENOXAPARIN SOD 40 MG/0.4 ML SYRINGE SC SCH (09:05)
[2020-03-15] MEDS: ALPRAZolam 0.5 MG TAB PO SCH ×2 (09:06→22:10)
[2020-03-15] MEDS: LISINOPRIL 10 MG TAB PO SCH (09:06)
--- NOTE | 2020-03-15 11:12 | NUR ---
Nutrition Assessment Est Energy needs 1199-7398 kcal (20-25 kcal/kg BW 68kg) Est protein needs 54-68g (0.8-1g/kg BW 68kg) Will reassess prn Addendum: 03/15/20 at [address] Amended: Links added.
[2020-03-15 13:00] VITALS: BP 128/59
--- NOTE | 2020-03-15 13:50 | NUR ---
PAGED DR ARROYO REGARDING PATIENT REQUESTING HOME MEDICATION TO BE RESUMED, NORCO 10. PATIENT STATES NORCO 5 IS NOT WORKING. WILL AWAIT CALL BACK
--- NOTE | 2020-03-15 14:59 | NUR ---
SPOKE WITH MD ARROYO NO NEW ORDERS RECEIVED AT THIS TIME.
[2020-03-15] MEDS: HYDROcodone-ACET 5/325MG TAB PO PRN ×2 (16:40→21:32)
[2020-03-15 17:00] VITALS: BP 114/76
--- NOTE | 2020-03-15 19:35 | NUR ---
RECEIVED PATIENT FROM DAY SHIFT RN. PATIENT IS WALKING FROM BATHROOM TO BED WITH WALKER. NO S/S OF DISTRESS NOTED. DENIED PAIN AT THIS TIME AFTER MEDIATION GIVEN BY DAY SHIFT RN. REINFORCED NPO AFTER MIDNIGHT FOR PROCEDURE TOMORROW. PATIENT VERBALIZED UNDERSTANDING. HOWEVER, PATIENT IS NOT COMFORTABLE TO SIGN THE CONSENT FORM FOR THE PROCEDURE TOMORROW. SHE WOULD LIKE TO TALK TO MD TOMORROW BEFORE PROCEDURE. WILL PASS IT ON. POC INSTRUCTED AND ENCOURAGED PATIENT TO CALL FOR BEAUTY CULTURIST APPRENTICE IF NEEDED. BED IN LOWEST POSITION WITH SIDE RAILS UP X 2. CALL BARAJAS WITHIN REACH. ALARM ON. CONTINUE TO MONITOR FOR CHANGES Q1H AND PRN.
--- NOTE | 2020-03-15 20:14 | NUR ---
REASSESSED PATIENT TEMP 100.5. PATIENT JUST HAD TYLENOL @ 1712, NOT YET DUE FOR NOW. ICE PACKS APPLIED AND COOLING MEASURE CONTINUED. PATIENT DENIED PAIN AND ANY DISCOMFORT. CONTINUE TO MONITOR. Addendum: 03/15/20 at 2133 by Kwaku Blanco RN wrong note
--- NOTE | 2020-03-15 21:33 | NUR ---
PATIENT C/O PAIN @ 10/10 ON HER RIGHT HIP, AND PREFERRED TO HAVE NORCO. MEDICATED PATIENT ORDERED. CONTINUE TO MONITOR.
[2020-03-15 22:00] VITALS: BP 133/65
[2020-03-15] MEDS: AMITRIPTYLINE HCL 25 MG TAB PO SCH (22:00)
--- NOTE | 2020-03-15 22:07 | NUR ---
REASSESSED PAIN, DOWN TO 5/10. CONTINUE TO MONITOR
--- NOTE | 2020-03-16 00:39 | NUR ---
PATIENT ON NPO NOW. FOOD AND WATER REMOVED FROM BEDSIDE. CONTINUE TO MONITOR.
--- NOTE | 2020-03-16 03:11 | NUR ---
PATIENT SLEEPING. NO S/S OF DISTRESS NOTED. CONTINUE TO MONITOR.
[2020-03-16] MEDS: HYDROcodone-ACET 5/325MG TAB PO PRN ×3 (04:38→19:36)
--- NOTE | 2020-03-16 04:39 | NUR ---
PATIENT C/O PAIN @ 03/13. PATIENT PREFERRED TO HAVE NORCO. MEDICATED PATIENT ORDERED. CONTINUE TO MONITOR.
[2020-03-16 05:00] VITALS: BP 115/62
[2020-03-16] MEDS: SUCRALFATE 1 GM/10 ML ORAL SUSP PO SCH ×3 (06:23→17:30)
--- NOTE | 2020-03-16 07:15 | NUR ---
Opening Shift Note Assumed care of patient, awake and alert. No S/S of distress/SOB. Patient complaining of 10/ headache pain at this time, will medicate per MD orders. Updated on POC and instructed to call for assistance PRN, patient verbalized understanding. Bed locked in lowest position, call light is within reach and side rails up x 2. Will continue to monitor q1hr and PRN for changes. Addendum: 03/16/20 at 0900 by BESSY ALTMAN RN RN disregard
--- NOTE | 2020-03-16 07:30 | NUR ---
Opening Shift Note Assumed care of patient, awake and alert. No S/S of distress/SOB. Patient denies pain at this time. Updated on POC and instructed to call for assistance PRN, patient verbalized understanding. Bed locked in lowest position, call light is within reach and side rails up x 2. Will continue to monitor q1hr and PRN for changes.
[2020-03-16] MEDS: CALCIUM W/VIT D (600MG/400IU) TAB PO SCH ×2 (08:00→18:03)
[2020-03-16] MEDS ORDERED: LIDOCAINE VISCOUS 2% 15ML UD ONE (08:55)
[2020-03-16] MEDS ORDERED: SODIUM CHLORIDE LOCK 10 ML ONE (08:56)
[2020-03-16 09:00] VITALS: BP 116/63
[2020-03-16] MEDS: PANTOPRAZOLE 40 MG TAB PO SCH (09:13)
[2020-03-16] MEDS: FLORASTOR (S. BOULARDII) 250 MG CAP PO SCH (09:13)
[2020-03-16] MEDS: ALPRAZolam 0.5 MG TAB PO SCH ×2 (09:14→22:11)
[2020-03-16] MEDS: ENOXAPARIN SOD 40 MG/0.4 ML SYRINGE SC SCH (09:14)
[2020-03-16] MEDS: LISINOPRIL 10 MG TAB PO SCH (09:17)
--- NOTE | 2020-03-16 09:26 | NUR ---
Med held for procedure Per pre op RN Thalia Administered lisinopril and held all other 1000 meds
--- NOTE | 2020-03-16 10:04 | NUR ---
PATIENT OFF UNIT PATIENT DOWN AT PROCEDURE NO SIGNS AND SYMPTOMS OF DISTRESS.
--- NOTE | 2020-03-16 11:00 | NUR ---
PT WENT DOWN FOR A PROCEDURE. ATTEMPT P.T. TOMORROW.
[2020-03-16] MEDS: fentaNYL CITRATE 100 MCG/2 ML VL ONE ×3 (11:16→11:22)
[2020-03-16] MEDS: MIDAZOLAM HCL 5 MG/ML-1ML VIAL ONE ×3 (11:16→11:22)
[2020-03-16] MEDS: diphenhdrAMINE HCL 50 MG/1 ML VL ONE ×2 (11:21→11:23)
[2020-03-16] MEDS ORDERED: GOLYTELY 4L KIT PO ONE (11:45)
--- NOTE | 2020-03-16 12:45 | NUR ---
PATIENT RETURNED TO UNIT PATIENT RETURNED FROM EGD , DR COLLINS IS DOING A COLONOSCOPY TOMORROW, PATIENT HAS NO SIGNS AND SYMPTOMS OF DISTRESS , BED IS LOCKED AND IN LOWEST POSITION , BED RAILS UP X2 , CALL LIGHT WITHIN REACH WILL CONTINUE TO MONITOR Q1HR OR PRN.
[2020-03-16 13:00] VITALS: BP 122/66
[2020-03-16] MEDS ORDERED: MORPHINE SULF INJ 2 MG/ML SYRINGE 1ML IV PRN (13:30)
[2020-03-16 17:00] VITALS: BP 119/71
--- NOTE | 2020-03-16 17:10 | NUR ---
SS consult for pt to resume hospice on discharge. Pt not able to remember name of hospice company and neither could Spouse. Provided me with name of hospice nurse, Isidra and her phone number. Contacted Isidra and pt's hospice company is [facility] ( [phone]). Contacted hospice and confirmed pt , faxed clinical information to agency. Informed agency that when pt is discharged they will be contacted. Jaiden continue to monitor and provide intervention as appropriate.
--- NOTE | 2020-03-16 19:36 | NUR ---
RECEIVED PATIENT FROM DAY SHIFT RN. PATIENT RESTING IN BED. NO S/S OF DISTRESS NOTED. C/O PAIN @ 03/13. MEDICATED PATIENT ORDERED. REINFORCED NPO AFTER MIDNIGHT FOR PROCEDURE TOMORROW. PATIENT VERBALIZED UNDERSTANDING. ENCOURAGED PATIENT TO DRINK GOLYTELY FOR BOWEL PREPARATION. POC INSTRUCTED AND ENCOURAGED PATIENT TO CALL FOR SECOND CHEF IF NEEDED. BED IN LOWEST POSITION WITH SIDE RAILS UP X 2. CALL BARAJAS WITHIN REACH. ALARM ON. CONTINUE TO MONITOR FOR CHANGES Q1H AND PRN.
[2020-03-16 22:00] VITALS: BP 111/52
[2020-03-16] MEDS: AMITRIPTYLINE HCL 25 MG TAB PO SCH (22:00)
--- NOTE | 2020-03-16 22:11 | NUR ---
ENCOURAGED PATIENT TO CONTINUE DRINKING GOLYTELY. PATIENT DRANK A CUP OF GOLYTELY AND WILL DRINK THE REST LATER. CONTINUE TO MONITOR.
--- NOTE | 2020-03-16 23:40 | NUR ---
PATIENT WENT TO BATHROOM WITH WALKER, PATIENT HAD LARGE GREENISH LIQUID BM. PATIENT GOWN CHANGED. PARTIAL LINEN CHANGED. CONTINUE TO MONITOR.
--- NOTE | 2020-03-17 00:17 | NUR ---
PATIENT NPO FOR NOW. WATER AND FOOD REMOVED FROM BEDSIDE. PATIENT VERBALIZED UNDERSTANDING. CONTINUE TO MONITOR.
--- NOTE | 2020-03-17 03:03 | NUR ---
PATIENT SLEEPING. NO S/S OF DISTRESS NOTED. CONTINUE CARE
[2020-03-17 05:00] VITALS: BP 142/69
[2020-03-17] MEDS: HYDROcodone-ACET 5/325MG TAB PO PRN (05:36)
--- NOTE | 2020-03-17 05:36 | NUR ---
PATIENT C/O PAIN @ 03/13. PATIENT PREFERRED TO HAVE NORCO. MEDICATED PATIENT ORDERED. CONTINUE TO MONITOR.
--- NOTE | 2020-03-17 05:57 | NUR ---
ASSISTED PATIENT TO BATHROOM WITH WALKER. PATIENT WAS FINE, HOWEVER, AFTER PATIENT HAD LIGHT GREENISH LIQUID BM, PATIENT STARTED TO FEEL NAUSEA AND WOULD LIKE TO VOMIT OUT. PATIENT WAS FEELING DIZZINESS WELL. ASSISTED PATIENT BACK WITH WHEELCHAIR. PATIENT REQUESTED NOT TO DRINK GOLYTELY FOR NOW. WILL SEE LATER IF SHE WOULD BE ABLE TO TOLERATE MORE GOLYTELY. CONTINUE TO MONITOR.
[2020-03-17] MEDS ORDERED: MAGNESIUM CITRATE SOLUTION 300 ML BTL PO ONE (06:00)
[2020-03-17] MEDS ORDERED: GOLYTELY 4L KIT PO ONE (06:00)
[2020-03-17 06:45] LABS: INR 1.04 (0.9-1.15)
[2020-03-17] MEDS: SUCRALFATE 1 GM/10 ML ORAL SUSP PO SCH ×3 (07:00→17:00)
[2020-03-17] MEDS ORDERED: SODIUM CHLORIDE LOCK 10 ML ONE (07:49)
[2020-03-17] MEDS: ENOXAPARIN SOD 40 MG/0.4 ML SYRINGE SC SCH (09:09)
--- NOTE | 2020-03-17 09:10 | NUR ---
PER DOCTORS ORDERS ADMINISTERED A WATER ENEMA 300 ML , PATIENT HELD FOR 20 MINUTES , OUTPUT STILL NOT CLEAR. WILL ADMINISTER ANOTHER WATER ENEMA IN 15 MINS.
[2020-03-17] MEDS: CALCIUM W/VIT D (600MG/400IU) TAB PO SCH (09:15)
[2020-03-17] MEDS: ALPRAZolam 0.5 MG TAB PO SCH (09:16)
[2020-03-17] MEDS: LISINOPRIL 10 MG TAB PO SCH (09:16)
[2020-03-17] MEDS: PANTOPRAZOLE 40 MG TAB PO SCH (09:17)
[2020-03-17] MEDS: FLORASTOR (S. BOULARDII) 250 MG CAP PO SCH (09:17)
[2020-03-17 10:00] VITALS: BP 161/62
[2020-03-17] MEDS ORDERED: SUCR1TAB22 PO (11:05)
[2020-03-17] MEDS ORDERED: PANT40TA2 PO (11:05)
[2020-03-17 12:44] VITALS: BP 132/61
--- NOTE | 2020-03-17 13:05 | NUR ---
PATIENT OFF UNIT PATIENT DOWN AT PROCEDURE , NO SIGNS AND SYMPTOMS OF DISTRESS.
[2020-03-17] MEDS: diphenhdrAMINE HCL 50 MG/1 ML VL ONE ×2 (14:05→14:09)
[2020-03-17] MEDS: fentaNYL CITRATE 100 MCG/2 ML VL ONE ×2 (14:05→14:09)
[2020-03-17] MEDS: MIDAZOLAM HCL 5 MG/ML-1ML VIAL ONE ×3 (14:05→14:12)
--- NOTE | 2020-03-17 16:30 | NUR ---
re-assessment Patient is now discharged. Per [facility] [phone] [facility] will transport patient home at 530pm today post discharge. Patient has been notified and agrees to discharge plan home on hospice. Addendum: 03/17/20 at 1632 by Socorro GREENE Amended: Links added.
[2020-03-17 17:00] VITALS: BP 135/64
--- NOTE | 2020-03-17 17:50 | NUR ---
Discharge instructions given as ordered. Encourage to follow up with PMD as instructed. All questions and concerns addressed. Patient verbalized understanding. Medication reconciliation form completed and copy given to patient. Home medications held in Pharmacy returned to patient, and needed vaccines given. IV removed with catheter intact, pressure dressing applied. Telemetry unit returned to ICU. Patient taken to vehicle via wheelchair with all personal belongings, accompanied by staff. No distress noted at time of departure.
== END 2020-03-17 18:25 | disposition hospice, home (50) | DRG 391 ==
LOC: EDBD 13:04 → ER 13:04 → TELE 13:05 → TELE-WESTW 20:45
PROVIDERS: ADMIT Hospitalist; ATTEND Internal Medicine
PROC: 0DB88ZX Excision of Small Intestine, Via Natural or Artificial Opening Endoscopic, Diagnostic (ICD-10-PCS; 2020-03-16)
PROC: 0DB68ZX Excision of Stomach, Via Natural or Artificial Opening Endoscopic, Diagnostic (ICD-10-PCS; principal; 2020-03-16 11:09)
PROC: 0DBP8ZX Excision of Rectum, Via Natural or Artificial Opening Endoscopic, Diagnostic (ICD-10-PCS; 2020-03-17)
DX: K29.70 Gastritis, unspecified, without bleeding (principal); N17.0 Acute kidney failure with tubular necrosis; E44.1 Mild protein-calorie malnutrition; I12.9 Hypertensive chronic kidney disease with stage 1 through stage 4 chronic kidney disease, or unspecified chronic kidney disease; N18.9 Chronic kidney disease, unspecified; M19.90 Unspecified osteoarthritis, unspecified site; F41.9 Anxiety disorder, unspecified; M79.7 Fibromyalgia; W18.39XA Other fall on same level, initial encounter; M16.11 Unilateral primary osteoarthritis, right hip; F32.9 Major depressive disorder, single episode, unspecified; F03.90 Unspecified dementia, unspecified severity, without behavioral disturbance, psychotic disturbance, mood disturbance, and anxiety; M43.16 Spondylolisthesis, lumbar region; M48.061 Spinal stenosis, lumbar region without neurogenic claudication; M54.9 Dorsalgia, unspecified; G89.4 Chronic pain syndrome; K59.00 Constipation, unspecified; K21.9 Gastro-esophageal reflux disease without esophagitis; K44.9 Diaphragmatic hernia without obstruction or gangrene; K57.90 Diverticulosis of intestine, part unspecified, without perforation or abscess without bleeding; K64.8 Other hemorrhoids; K29.80 Duodenitis without bleeding; Z51.5 Encounter for palliative care; Y93.01 Activity, walking, marching and hiking; Y92.090 Kitchen in other non-institutional residence as the place of occurrence of the external cause; Z68.30 Body mass index [BMI] 30.0-30.9, adult; Y99.8 Other external cause status; Z90.710 Acquired absence of both cervix and uterus; Z90.89 Acquired absence of other organs; Z79.899 Other long term (current) drug therapy; Z82.49 Family history of ischemic heart disease and other diseases of the circulatory system; Z82.62 Family history of osteoporosis; Z80.8 Family history of malignant neoplasm of other organs or systems; Z82.0 Family history of epilepsy and other diseases of the nervous system; Z82.5 Family history of asthma and other chronic lower respiratory diseases; Z81.8 Family history of other mental and behavioral disorders; Z83.3 Family history of diabetes mellitus; Z80.3 Family history of malignant neoplasm of breast; Z80.1 Family history of malignant neoplasm of trachea, bronchus and lung; Z80.41 Family history of malignant neoplasm of ovary; Z82.3 Family history of stroke
CPT/HCPCS: 36415; 43239; 45380; 70450; 71045; 71250; 72131; 72192; 73700; 74176; 80048; 80053; 80061; 80307; 81001; 82150; 83036; 83690; 83735; 84443; 84484; 85025; 85610; 85730; 87040; 87086; 93005; 93886; 96361; 96365; 96375; G0378; J0696; J1885; J2250; J2405

== ENCOUNTER 2021-03-28 16:21 | Emergency (ER) | payer MEDICARE, OTHER ==
[~2021-03-28] VITALS: Ht 152.4 cm; Wt 61.2 kg
[~2021-03-28 16:21] MED LIST changes: -ALPR0.5T PO; +ALPR0.5T7 PO; +AMIT25TA12 PO; -ENAL2.5T7 PO; +FURO20TA3 PO; -HYDR-4833 PO; +HYDR-531 PO; -LISI-648; +LISI-716 PO; +PANT40TA2 PO; +POTA8TAB2 PO; +SUCR1TAB22 PO
[2021-03-28 18:59] LABS: Basophils # (auto) 0 10 ^3/uL (0-0.2); Basophils % (auto) 0.5 % (0.0-2.0); Eosinophils # (auto) 0.1 10 ^3/uL (0-0.8); Eosinophils % (auto) 0.7 % (0.0-7.0); Hematocrit 35.3 % (36.0-46.0); Hemoglobin 11.7 g/dL (12.2-16.2); Lymphocytes # (auto) 1.6 10 ^3/uL (0.4-5.4); Lymphocytes % (auto) 22.9 % (10.0-50.0); Mean Corpuscular Hemoglobin 28.6 pg (28.0-32.0); Mean Corpuscular Hgb Conc. 33.2 g/dL (32.0-36.0); Mean Corpuscular Volume 86.3 fL (80.0-100.0); Monocytes # (auto) 1.2 10 ^3/uL (0-1.3); Monocytes % (auto) 17.3 % (0.0-12.0); Neutrophils # (auto) 4.2 10 ^3/uL (1.6-8.6); Neutrophils % (auto) 58.6 % (37.0-80.0); Red Blood Cells 4.09 10^6/uL (4.0-5.20); Red Cell Distribution Width 13.8 % (11.8-14.3); White Blood Cell 7.2 10^3/uL (4.4-10.8)
[2021-03-28 19:21] LABS: Albumin 2.6 g/dL (3.4-5.0); Anion Gap 2 (5-15); Blood Urea Nitrogen 30 mg/dL (7-18); Calcium 8.4 mg/dL (8.5-10.1); Carbon Dioxide 28 mmol/L (21-32); Chloride 107 mmol/L (98-107); Glucose 112 mg/dL (74-106); Magnesium 2.9 mg/dL (1.6-2.6); Potassium 4.6 mmol/L (3.5-5.1); Sodium 137 mmol/L (136-145)
[2021-03-28 19:28] LABS: Alanine Aminotransferase 78 U/L (13-56); Alkaline Phosphatase 106 U/L (45-117); Aspartate Aminotransferase 187 U/L (15-37); BUN/Creatinine Ratio 21.7; Bilirubin, Total 0.6 mg/dL (0.2-1.0); GFR African American 47 mL/min; GFR Non-African American 39 mL/min
[2021-03-29 07:55] VITALS: BP 103/67
== END 2021-03-29 08:03 | disposition home or self-care (01) ==
LOC: ER 16:21 → EDBD 16:21 → ER 03-29 08:03
DX: M54.50 Low back pain, unspecified (principal); M25.552 Pain in left hip; M25.551 Pain in right hip; I10 Essential (primary) hypertension; Z90.710 Acquired absence of both cervix and uterus; W18.39XA Other fall on same level, initial encounter; Y93.89 Activity, other specified; Y92.89 Other specified places as the place of occurrence of the external cause; Y99.8 Other external cause status
CPT/HCPCS: 36415; 70450; 71045; 72131; 72192; 80053; 83735; 84484; 85025; 93005

== ENCOUNTER 2022-01-11 21:58 | Emergency (ER) | payer MEDICARE, OTHER ==
[~2022-01-11] VITALS: Ht 165.1 cm; Wt 90.9 kg
[2022-01-11] MEDS ORDERED: amLODIPine BESYLATE 5 MG TAB PO ONE (22:15)
[2022-01-12 00:01] LABS: Basophils # (auto) 0.2 10 ^3/uL (0-0.2); Eosinophils # (auto) 0.2 10 ^3/uL (0-0.8); Eosinophils % (auto) 1.8 % (0.0-7.0); Hemoglobin 13.2 g/dL (12.2-16.2); Lymphocytes # (auto) 2.4 10 ^3/uL (0.4-5.4); Lymphocytes % (auto) 27.2 % (10.0-50.0); Mean Corpuscular Hemoglobin 27.2 pg (28.0-32.0); Mean Corpuscular Hgb Conc. 32.1 g/dL (32.0-36.0); Mean Corpuscular Volume 84.6 fL (80.0-100.0); Monocytes # (auto) 0.9 10 ^3/uL (0-1.3); Monocytes % (auto) 9.9 % (0.0-12.0); Neutrophils # (auto) 5.1 10 ^3/uL (1.6-8.6); Neutrophils % (auto) 59.1 % (37.0-80.0); Red Blood Cells 4.84 10^6/uL (4.0-5.20); Red Cell Distribution Width 14.1 % (11.8-14.3); White Blood Cell 8.7 10^3/uL (4.4-10.8)
[2022-01-12 00:21] LABS: Albumin 3.5 g/dL (3.4-5.0); Calcium 9.2 mg/dL (8.5-10.1); Potassium 3.4 mmol/L (3.5-5.1)
[2022-01-12 00:26] LABS: Bilirubin, Total 0.5 mg/dL (0.2-1.0)
[2022-01-12 05:21] VITALS: BP 178/64
== END 2022-01-12 06:05 | disposition home or self-care (01) ==
LOC: EDBD 21:58 → ER 21:58
DX: I10 Essential (primary) hypertension (principal); Z90.710 Acquired absence of both cervix and uterus; Z90.89 Acquired absence of other organs; Z79.2 Long term (current) use of antibiotics; Z79.899 Other long term (current) drug therapy
CPT/HCPCS: 36415; 70450; 71045; 80053; 84484; 85025; 93005